=== PATIENT | female | born 1960 | race Caucasian/White ===

== ENCOUNTER → 2019-10-24 09:39 | Outpatient (BNVA) | payer MEDICAID, SELFPAY | PROVIDERS: Family Provider Nurse Practitioner; PCP Nurse Practitioner; Visit Provider Nurse Practitioner | DX: F43.12 Post-traumatic stress disorder, chronic (principal) | CPT/HCPCS: 99213 ==

== ENCOUNTER → 2020-04-14 07:41 | Outpatient (BNVA) | payer MEDICAID, SELFPAY | PROVIDERS: Family Provider Nurse Practitioner; PCP Nurse Practitioner; Visit Provider Nurse Practitioner | DX: F43.12 Post-traumatic stress disorder, chronic (principal) | CPT/HCPCS: 99213 ==

== ENCOUNTER 2020-04-29 12:25 | Outpatient (CLI) | payer MEDICAID, SELFPAY ==
--- NOTE | 2020-04-29 12:33 | XRR_ITS ---
PROCEDURE INFORMATION: Exam: XR Left Wrist Exam date and time: 04/29/2020 12:35 PM Age: 59 years old Clinical indication: Prior surgery; Surgery date: 6+ months; Surgery type: Carpal tunnel; Patient HX: C/O chronic left wrist pain TECHNIQUE: Imaging protocol: XR Left wrist. Views: 3 or more views. COMPARISON: No relevant prior studies available. FINDINGS: Bones/joints: Old distal radial and ulnar styloid fractures and degenerative change. Soft tissues: Unremarkable. XR/XR wrist LT min 3V* [id number] IMPRESSION: Old distal radial and ulnar styloid fractures and degenerative change.
== END 2020-04-29 12:26 | disposition home or self-care (01) ==
PROVIDERS: Family Provider Family Medicine; PCP Family Medicine; Visit Provider Family Medicine
DX: M25.532 Pain in left wrist (principal); G89.29 Other chronic pain; Z87.81 Personal history of (healed) traumatic fracture
CPT/HCPCS: 73110

== ENCOUNTER → 2020-05-29 08:40 | Outpatient (BNVA) | payer MEDICAID, SELFPAY | PROVIDERS: Family Provider Family Medicine; PCP Family Medicine; Visit Provider Family Medicine | DX: E11.9 Type 2 diabetes mellitus without complications (principal); E78.5 Hyperlipidemia, unspecified; M25.532 Pain in left wrist; G89.29 Other chronic pain; F17.219 Nicotine dependence, cigarettes, with unspecified nicotine-induced disorders | CPT/HCPCS: 80053; 80061; 82043; 83036; 85025; 87086 ==

== ENCOUNTER → 2020-07-01 07:34 | Outpatient (BNVA) | payer MEDICAID, SELFPAY | PROVIDERS: Family Provider Family Medicine; PCP Family Medicine; Visit Provider Nurse Practitioner | DX: F43.12 Post-traumatic stress disorder, chronic (principal) | CPT/HCPCS: 99213 ==

== ENCOUNTER → 2020-09-15 11:24 | Outpatient (BNVA) | payer MEDICAID, SELFPAY | PROVIDERS: Family Provider Family Medicine; PCP Family Medicine; Visit Provider Family Medicine | DX: E11.9 Type 2 diabetes mellitus without complications (principal) | CPT/HCPCS: 80053; 83036 ==

== ENCOUNTER → 2020-10-13 07:47 | Outpatient (BNVA) | payer MEDICAID, SELFPAY | PROVIDERS: Family Provider Family Medicine; PCP Family Medicine; Visit Provider Nurse Practitioner | DX: F43.12 Post-traumatic stress disorder, chronic (principal) | CPT/HCPCS: 99213 ==

== ENCOUNTER → 2020-12-25 10:16 | Outpatient (BNVA) | payer MEDICAID, SELFPAY | PROVIDERS: Family Provider Family Medicine; PCP Family Medicine; Visit Provider Family Medicine | DX: E78.5 Hyperlipidemia, unspecified (principal); E11.9 Type 2 diabetes mellitus without complications; F17.219 Nicotine dependence, cigarettes, with unspecified nicotine-induced disorders | CPT/HCPCS: 80053; 80061; 83036 ==

== ENCOUNTER → 2021-01-05 08:02 | Outpatient (BNVA) | payer MEDICAID, SELFPAY | PROVIDERS: Family Provider Family Medicine; PCP Family Medicine; Visit Provider Nurse Practitioner | DX: F43.12 Post-traumatic stress disorder, chronic (principal) | CPT/HCPCS: 99214 ==

== ENCOUNTER → 2021-03-02 08:05 | Outpatient (BNVA) | payer MEDICAID, SELFPAY | PROVIDERS: Family Provider Family Medicine; PCP Family Medicine; Visit Provider Nurse Practitioner | DX: F43.12 Post-traumatic stress disorder, chronic (principal) | CPT/HCPCS: 99214 ==

== ENCOUNTER → 2021-04-27 10:39 | Outpatient (BNVA) | payer MEDICAID, SELFPAY | PROVIDERS: Family Provider Family Medicine; PCP Family Medicine; Visit Provider Family Medicine | DX: E11.9 Type 2 diabetes mellitus without complications (principal); E78.5 Hyperlipidemia, unspecified; F17.219 Nicotine dependence, cigarettes, with unspecified nicotine-induced disorders | CPT/HCPCS: 80053; 82043; 83036 ==

== ENCOUNTER → 2021-05-06 07:06 | Outpatient (BNVA) | payer MEDICAID, SELFPAY | PROVIDERS: Family Provider Family Medicine; PCP Family Medicine; Visit Provider Nurse Practitioner | DX: F43.12 Post-traumatic stress disorder, chronic (principal) | CPT/HCPCS: 99214 ==

== ENCOUNTER → 2021-07-02 09:11 | Outpatient (BNVA) | payer MEDICAID, SELFPAY | PROVIDERS: Family Provider Family Medicine; PCP Family Medicine; Visit Provider Family Medicine | DX: E78.5 Hyperlipidemia, unspecified (principal); Z13.6 Encounter for screening for cardiovascular disorders; Z23 Encounter for immunization; E11.9 Type 2 diabetes mellitus without complications; Z68.20 Body mass index [BMI] 20.0-20.9, adult; F17.219 Nicotine dependence, cigarettes, with unspecified nicotine-induced disorders; Z71.6 Tobacco abuse counseling; Z71.89 Other specified counseling | CPT/HCPCS: 80053; 80061 ==

== ENCOUNTER → 2021-07-29 07:53 | Outpatient (BNVA) | payer MEDICAID, SELFPAY | PROVIDERS: Family Provider Family Medicine; PCP Family Medicine; Visit Provider Nurse Practitioner | DX: F43.12 Post-traumatic stress disorder, chronic (principal) | CPT/HCPCS: 99214 ==

== ENCOUNTER → 2021-10-21 08:26 | Outpatient (BNVA) | payer MEDICAID, SELFPAY | PROVIDERS: Family Provider Family Medicine; PCP Family Medicine; Visit Provider Nurse Practitioner | DX: F43.12 Post-traumatic stress disorder, chronic (principal) | CPT/HCPCS: 99214 ==

== ENCOUNTER 2021-12-07 13:49 | Outpatient (CLI) | payer MEDICAID, SELFPAY ==
--- NOTE | 2021-12-07 13:59 | XRR_ITS ---
PROCEDURE INFORMATION: Exam: XR Right Ribs with PA Chest Exam date and time: 12/07/2021 1:59 PM Age: 61 years old Clinical indication: Injury or trauma; Fall; Rib area, left side; Blunt trauma; Injury date: 3 days ago; Injury details: PT fell on concrete stairs 3 days, pain RT rib area; Additional info: Pain after fall TECHNIQUE: Imaging protocol: XR Right ribs with PA chest. Views: 3 views COMPARISON: No relevant prior studies available. FINDINGS: Lungs: Unremarkable. No consolidation. Pleural spaces: Unremarkable. No pleural effusion. No pneumothorax. Heart/Mediastinum: Unremarkable. No cardiomegaly. Bones/joints: Unremarkable. XR/XR ribs RT mn 3V w CXR1V [id number] IMPRESSION: No acute findings.
== END 2021-12-07 13:50 | disposition home or self-care (01) ==
LOC: RAD 13:54
PROVIDERS: Family Provider Family Medicine; PCP Family Medicine; Visit Provider Nurse Practitioner
DX: R07.81 Pleurodynia (principal); W19.XXXA Unspecified fall, initial encounter
CPT/HCPCS: 71101

== ENCOUNTER → 2021-12-31 08:42 | Outpatient (BNVA) | payer MEDICAID, SELFPAY | PROVIDERS: Family Provider Family Medicine; PCP Family Medicine; Visit Provider Family Medicine | DX: E11.9 Type 2 diabetes mellitus without complications (principal) | CPT/HCPCS: 80053; 83036; 85025 ==

== ENCOUNTER → 2022-06-24 09:10 | Outpatient (BNVA) | payer MEDICAID, SELFPAY | PROVIDERS: Family Provider Family Medicine; PCP Family Medicine; Visit Provider Family Medicine | DX: E11.9 Type 2 diabetes mellitus without complications (principal); Z12.11 Encounter for screening for malignant neoplasm of colon; E78.5 Hyperlipidemia, unspecified; Z12.31 Encounter for screening mammogram for malignant neoplasm of breast; F17.219 Nicotine dependence, cigarettes, with unspecified nicotine-induced disorders | CPT/HCPCS: 80053; 82043; 83036 ==

== ENCOUNTER → 2022-07-13 08:34 | Outpatient (BNVA) | payer MEDICAID, SELFPAY | PROVIDERS: Family Provider Family Medicine; PCP Family Medicine; Visit Provider Surgery | DX: Z86.010 Personal history of colon polyps (principal) | CPT/HCPCS: 99203 ==

== ENCOUNTER → 2022-08-16 08:37 | Outpatient (BNVA) | payer MEDICAID, SELFPAY | PROVIDERS: Family Provider Family Medicine; PCP Family Medicine; Visit Provider Surgery | DX: Z86.010 Personal history of colon polyps (principal) | CPT/HCPCS: 99203 ==

== ENCOUNTER 2022-10-05 08:39 | Outpatient (CLI) | payer MEDICAID, SELFPAY ==
--- NOTE | 2022-10-05 08:51 | MM_ITS ---
WS: [id number] Bilateral screening 3D tomosynthesis digital mammogram, 10/05/2022 Clinical Data: screening mammogram Comparison: None. Findings: The breast parenchymal pattern shows fibroglandular tissue. No spiculated masses or clustered calcifi cations are seen. There are no secondary signs of carcinoma. MM/[place] [id number] Impression: 1. Negative bilateral mammogram unchanged. 2. Recommend annual screening mammograms. BIRADS: 1-Negative FOLLOW UP: 1 Year Follow-up The CAD billet checker was used.
== END 2022-10-05 08:40 | disposition home or self-care (01) ==
LOC: RAD 08:41
PROVIDERS: Family Provider Family Medicine; PCP Family Medicine; Visit Provider Family Medicine
DX: Z12.31 Encounter for screening mammogram for malignant neoplasm of breast (principal)
CPT/HCPCS: 77063; 77067

== ENCOUNTER 2023-01-11 08:21 | Outpatient (CLI) | payer MEDICAID, SELFPAY ==
--- NOTE | 2023-01-11 07:45 | CT_ITS ---
WS: [id number] LDCT LUNG CANCER SCREENING HISTORY: screening TECHNIQUE: Axial imaging performed from the apices to 1 cm below the costophrenic angles. Coronal and sagittal reformats are submitted with axial MIP series. All CT scans at [facility] use at least one of these dose optimization techniques: automated exposure control; mA and/or kV adjustment per patient size (includes targeted exams where dose is matched to clinical indication); or iterativ e reconstruction. DLP: 69.61 mGy.cm DIvol: Mean CTDIvol: 1.60 (mGy) COMPARISON: None available. Diagnostic quality: Satisfactory Lungs: Chronic emphysema. Large spiculated mass RIGHT upper lobe measures 2.9 x 3.5 cm. Numerous spic ulations with small satellite nodules. There is tethering and extension towards the pleura. There are additional bilateral numerous scattered subcentimeter pulmonary nodules. Some of these additional no dules contain central cavitations. These additional nodules are bilateral and in all lobes. Heart: Normal size heart with no pericardial effusion.. No pericardial effusion. Other findings: Mild atherosclerosis aorta. Normal size pulmonary artery. No adenopathy identified wi thin the mediastinum or hilum. No adrenal mass. Nonobstructing upper pole RIGHT renal calcification. CT/CT lung screening [id number] IMPRESSION: LUNG-RADS: 4X-Suspicious FOLLOW UP: PET/CT recommended OTHER FINDINGS (S MODIFIER): None. Highly suspicious mass or malignancy RIGHT upper lobe with additional pulmonary nodules suspicious for metastatic disease.
== END 2023-01-11 08:22 | disposition home or self-care (01) ==
LOC: RAD 08:23
PROVIDERS: PCP Family Medicine; Visit Provider Family Medicine
DX: J43.9 Emphysema, unspecified (principal); R91.8 Other nonspecific abnormal finding of lung field; F17.200 Nicotine dependence, unspecified, uncomplicated
CPT/HCPCS: 71271; 80053; 80061; 83036; 85025

== ENCOUNTER 2023-01-28 07:17 | Outpatient (CLI) | payer MEDICAID, SELFPAY ==
--- NOTE | 2023-01-28 09:30 | PETR_ITS ---
PROCEDURE INFORMATION: Exam: PET/CT Skull Base to Mid-thigh Exam date and time: 01/28/2023 9:57 AM Age: 62 years old Clinical indication: Abnormal findings lung field; Additional info: R lung mass LABS AND CLINICAL REPORTS: Glucose: 150 mg/dl Treatment strategy for malignancy (PET staging): Initial Staging (PI) TECHNIQUE: Imaging protocol: Following at least four-hour fasting and following the injection of radiopharmaceutical, low dose CT images were obtained. Then, PET images were obtained. Attenuation corrected images were constructed using the CT scan. Fused images of PET and CT were reviewed. The standardized uptake values (SUV) reported below are maximum values within a region of interest, expressed in gm/ml. Exam includes orbital meatal line to mid-thigh. Radiopharmaceutical: 14.44 mCi F-18 FDG (Fluorodeoxyglucose), IV. Time of imaging post radiopharmaceutical administration: 60.5 minutes. Injection site: Right antecubital vein. COMPARISON: 1. CT lung screening 76079 01/11/2023. 2. CR XR ribs RT mn 3V w CXR1V 55079 12/07/2021. FINDINGS: Brain: Visualized brain has normal physiologic uptake. Pharynx: No abnormal uptake. Larynx: No abnormal uptake. Lungs, pleura and trachea: In the right upper lobe, at the posterolateral aspect of the apical segment, a malignant spiculated mass, 2.3 x 1.9 x 2.0 cm, has an SUV max of 5.1 (image 38). On the recent comparison CT chest, there were approximally 30 small spiculated nodules scattered throughout all lobes of both lungs. They are consistent with metastases. Several had central cavitation. The largest pulmonary nodule, in the anterior segment of the right upper lobe, is 6 mm (image 53). Its SUV max is 1.3. The rest of the nodules are too small to be detectable on PET. Heart: Normal physiologic uptake. Mediastinal space: No abnormal uptake. Liver: No abnormal uptake. Gallbladder and bile ducts: No abnormal uptake. Pancreas: No abnormal uptake. Spleen: No abnormal uptake. Adrenal glands: No abnormal uptake. Kidneys and ureters: Normal physiologic uptake. Stomach and bowel: No abnormal uptake. The stomach and duodenum are unremarkable. The small bowel is normal in caliber without wall thickening. The colon is unremarkable. There is no acute colonic distention, diverticulosis or inflammation. Reproductive: Postmenopausal uterine and ovarian atrophy is appropriate for 62 years of age. Vasculature: There is moderate calcific atherosclerosis of the abdominal aorta and iliac arteries. There is no aneurysm. Lymph nodes: No FDG avid lymphadenopathy. Bones/joints: No abnormal uptake. Mild/moderate spinal degenerative changes. No FDG avid lytic or blastic skeletal lesions. Soft tissues: No metabolically active areas. PET/PET skulltothigh INITIAL [id number] IMPRESSION: 1. In the right upper lobe, at the apical segment, a malignant spiculated mass, 2.3 x 1.9 x 2.0 cm, has an SUV max of 5.1 (image 38). Biopsy is recommended. 2. On the recent comparison CT chest, there were approximally 30 small spiculated nodules scattered throughout all lobes of both lungs. They are consistent with metastases. Several had central cavitation. The largest pulmonary nodule, in the anterior segment of the right upper lobe, is 6 mm (image 53). Its SUV max is 1.3. The rest of the nodules are too small to be detectable on PET. 3. No FDG avid lymphadenopathy. 4. No FDG avid distant metastases.
== END 2023-01-30 06:06 | disposition home or self-care (01) ==
PROVIDERS: PCP Family Medicine; Visit Provider Internal Medicine Pulmonary Disease
DX: R91.8 Other nonspecific abnormal finding of lung field (principal)
CPT/HCPCS: 78815; 99204; A9552

== ENCOUNTER 2023-01-31 05:28 | Day surgery (SDC) | payer MEDICAID, SELFPAY ==
[2023-01-30 10:20] VITALS: BMI 20.2
[2023-01-31] VITALS (20 sets, daily range): BP systolic 53–118; BP diastolic 34–62; PULSE 55–92; RESP 16–20; TEMP 36.1–36.8; O2SAT 89–98
--- NOTE | 2023-01-31 05:49 | CT_ITS ---
WS: [id number] CT chest ION (PULM ONLY) 12883 HISTORY: for ION bronchoscopy biopsies TECHNIQUE: Axial imaging performed through the thorax. [facility] CT [facility] use at least one of these dose optimization techniques: automated exposure control; mA and/or kV adjustment per p atient size (includes targeted exams where dose is matched to clinical indication); or iterative cristin nstruction. CONTRAST: Omnipaque 350; 100 mL IV. DLP: 192.84 mGy-cm. COMPARISON: 01/11/2023 Imaging obtained for guidance during bronchoscopy. Spiculated mass in the RIGHT upper lobe was recent ly identified along with metastatic nodules suspected bilaterally. Marked pulmonary hyperexpansion. C hronic emphysema. No pneumothorax. No pleural effusion. CT/CT chest ION (PULM ONLY) 14775 IMPRESSION: CT imaging provided for guidance during bronchoscopy. Highly suspicious for louis plasm RIGHT upper lobe and multi lobar metastatic nodules.
[2023-01-31 06:34] LABS: Glucose Point of Care 164 mg/dL (70-110)
[2023-01-31] MEDS: sodium chloride 0.9% 1,000 ML 30 ML IV (06:34)
--- NOTE | 2023-01-31 06:51 | W.PM.OPSUD ---
Surgery/Procedure H&P Update DATE OF PROCEDURE: January 31, 2023 DATE H&P PERFORMED: 01/17/23 H&P UPDATE INFORMATION: I have reviewed H&P completed within last 30 days CHANGES TO PREVIOUS DOCUMENTATION: Patient underwent PET/CT scan on 01/28/2023 which showed spiculated right upper lobe apical segment nodule 2.3 x 1.9 x 2.0 cm with SUV 5.1. When compared to recent CT chest there were approximately 30 small spiculated nodules scattered throughout all lobes of both lungs. Several had central cavitation. Largest pulmonary nodule in anterior segment of right upper lobe 6 mm. Its SUV is 1.3 the rest of the nodules are too small to be detectable on PET. No FDG avid lymphadenopathy. No FDG avid distant metastasis Otherwise no change PREOP DIAGNOSIS: Suspected malignancy PRIMARY INDICATION FOR PROCEDURE: PET active right upper lobe spiculated 2.3 cm nodule-performing biopsies to rule out malignancy PLANNED PROCEDURE: Operation Date: 01/31/23 07:00 Proposed Procedures p ION robotic bronch with EBUS; 13349, 39755, 47578, 96202, 94268, 68785, 23737, 69925, 13973, 69363, 14253, 80176, 43912,R91.8,R68.89(Not Applicable) - Phu Arndt MD s Ebus(Not Applicable) - Phu Arndt MD
--- NOTE | 2023-01-31 07:28 | SC_ITS ---
WS: [id number] Exam: C-arm FL for Bronchoscopy Date/Time of Exam: 01/31/2023 7:28 AM Reason For Exam: right upper lobes mass A single anterior posterior C-arm image of the upper right chest is obtained for intraoperative purpo ses. A partially visualized ET tube is noted.
[2023-01-31] MEDS: lidocaine 1% INJ 10 mL (per mL) XX (08:31)
--- NOTE | 2023-01-31 08:32 | P.OP_ITS ---
Operative Report Date of procedure: January 31, 2023 Pre-op diagnosis: Preop Diagnosis Suspected malignancy Procedure done: 64848? ? Dx Bronchoscope w/Washings or airway inspection 04531? ? Dx Bronchoscope w/BAL 26113? ? Bronch with computer image guided Navigational Bronchoscopy 17836? ? Bronchoscopy w/Transbronchial lung biopsy(s), single lobe 89750? ? Bronchoscopy w/Transbronchial needle aspiration biopsy(s), tracheal, main stem, and/or lobar bronchus 38588? ? Bronchoscopy w/ therapeutic aspiration of the tracheobronchial tree (clearance of airway secretions, removal of mucus plugs) 35466? ? EBUS Diag or Interven Peripheral lesion (radial EBUS) Surgeon: Phu Arndt MD [facility] Brief History: Ms. Fabian Read is a 62-year-old female with history of chronic emphysema, chronic smoker, cannabis user, dyslipidemia, type 2 diabetes, PTSD referred by primary care physician ?Current smoker 10-12 per day now and 1 PPD x 45 years, no alcohol, she smoke marijuana - 3-4 balls a day and says she likes to drink it. Patient recently underwent low-dose CT on 01/11/2023 which showed 2.9 x 3.5 cm right upper lobe mass.? There were numerous spiculations with small satellite nodules.? There is tethering and extension towards the pleura.? There were some additional nodules containing central cavitations.? There is additional nodules are bilateral and in all lobes. Patient underwent PET/CT scan on 01/28/2023 which showed spiculated right upper lobe apical segment nodule 2.3 x 1.9 x 2.0 cm with SUV 5.1.? When compared to recent CT chest there were approximately 30 small spiculated nodules scattered throughout all lobes of both lungs.? Several had central cavitation.? Largest pulmonary nodule in anterior segment of right upper lobe 6 mm.? Its SUV is 1.3 the rest of the nodules are too small to be detectable on PET.? No FDG avid lymphadenopathy.? No FDG avid distant metastasis Today scheduled for robotic navigational assisted bronchoscopic biopsies of right upper lobe lesion and endobronchial ultrasound surveillance of mediastinal/hilar lymph nodes. Procedure: 16688? ? Dx Bronchoscope w/Washings or airway inspection 83880? ? Dx Bronchoscope w/BAL 19110? ? Bronch with computer image guided Navigational Bronchoscopy 78880? ? Bronchoscopy w/Transbronchial lung biopsy(s), single lobe 18392? ? Bronchoscopy w/Transbronchial needle aspiration biopsy(s), tracheal, main stem, and/or lobar bronchus 95876? ? Bronchoscopy w/ therapeutic aspiration of the tracheobronchial tree (clearance of airway secretions, removal of mucus plugs) 42968? ? EBUS Diag or Interven Peripheral lesion (radial EBUS) Description of the procedure: The procedure was explained to the patient and the consent was obtained.? The patient was brought to the OR.? Anesthesia: The patient underwent endotracheal intubation for general anesthesia. Local anesthesia: The distal trachea-Maurisio, right and left mainstem bronchi were anesthetized with 1% lidocaine, 3 mL. Following induction of general anesthesia, the flexible bronchoscope was advanced through the? ET tube.? The? lower trachea mucosa appeared normal, no endotracheal lesion was seen.? The maurisio was sharp.? There were some mucus globs in the trachea which were suctioned right away.The maurisio, the right and left mainstem bronchi are anesthetized with 1% lidocaine.? There were some in a systematic manner bilateral bronchial tree was then examined. ? The bronchoscope was advanced into the left mainstem bronchus.? The mucosa appeared normal with no endobronchial lesions.? The left upper lobe, lingula and left lower lobe bronchi were examined up to the third subsegmental level and no abnormalities were identified.? Mucosa appeared normal with no endobronchial lesion, active bleeding or mucous plug.??There were some mucus secretions in lower lobe-which were suctioned right away.(53093) ?The bronchoscope was then introduced into the right mainstem bronchus.? The right upper lobe, right middle lobe and right lower lobe bronchi were examined up to the third subsegmental level and no abnormalities were identified.There were some mucus secretions in all subsegments-which were suctioned right away.(51605) After initial inspection as well as?airway clearance with flexible bronchoscope(07273),?ION robotic assisted navigational bronchoscope (21254)?was introduced-and?right?upper lobe lesion was accessed.? After?confirming the location with radial EBUS (85510),?under the fluoroscopy guidance? -we were able to obtain biopsies from right upper lobe lesion using fine-needle, forceps.? 1 pass each with forceps and fine-needle were used for touch prep and sent for rapid onsite evaluation-pathology reported seeing suspicious cells for malignancy on both fine-needle and forceps slides.? Targeting the same area, 3 additional passes were made with fine-needle and 3 passes were made with forceps and all the samples were placed in formalin for histopathology examination. Bronchoscope was wedged at the entrance of the posterior segment of right upper lobe, 15 mL of saline was instilled and returned 10 mL of bronchoalveolar lavage (58631).? The fluid was mixed with blood and specks of tissue. There was some evidence of grade 2 bleeding-cold saline was instilled and after making sure there is no active bleeding, ION robotic assisted navigational bronchoscope was retracted and?introduced Endobronchial ultrasound EBUS(57425). ? With the help of EBUS, did not identify any hilar/mediastinal lymph nodes. ?After making sure there is no active bleeding EBUS was retracted and procedure terminated. ? Samples: Right upper lobe lesion 1.? Total of 4 passes were made?using needle aspiration(62250);?first pass used for touch prep - reported positive for malignancy; remaining 3 passes were placed in formalin for histopathology 2.? Targeting the same area 4 passes were?made using forceps (36247); first pass used for touch prep -pathology reported seeing positive cells for malignancy; remaining 3 passes were placed in formalin for histopathology 3.?Bronchoscope was wedged at the entrance of the posterior segment of right upper lobe, 15 mL of saline was instilled and returned 10 mL of bronchoalveolar lavage (19981).? The fluid was mixed with blood and specks of tissue.samples for cell count, cytology. Complications: None.The patient was extubated and brought to the PACU in stable condition. Postprocedure chest x-ray: No pneumothorax Disposition: Patient can be discharged home in stable condition. ? Pt, is aware that I am going to call them? to update final biopsy results once available.
--- NOTE | 2023-01-31 08:57 | XR_ITS ---
WS: [id number] Exam: XR chest 1V portable 54529 Date/Time of Exam: 01/31/2023 8:57 AM Reason For Exam: Post ION Comparison 12/07/2021. There is a focal parenchymal density in the right upper lobe that may represent consolidating pneumon ia or mass. There are also several ill-defined scattered nodular densities in both lungs which appear to represent a change since the last study. There is coarsening of interstitial markings throughout both lungs. Heart size is normal. The mediastinum is normal in contour. No pleural effusions. Regiona l bony elements are intact. Monitoring leads superimpose the chest. Recommendations: Contrast CT scanning of the chest would be recommended for further workup. XR/XR chest 1V portable 14592 IMPRESSION: 1. Ill-defined focal density in the right upper lobe which may represent focal pneumonia or mass. 2. Scattered ill-defined nodular densities in both lungs which represents a gorge nge since the prior study. Coarsening of interstitial markings throughout both lungs also not present on the prior exam.
--- NOTE | 2023-01-31 09:10 | SUR.PHASEI ---
ANESTHESIA AWARE OF LOW B/P. ALBUMIN GIVEN BY DR. GALAN. 50 ML OF ALBUMIN IVPB.
[2023-01-31 09:54] LABS: Apprearance, Bronch Wash Bloody (CLEAR); Color, Bronc Wash Red
[2023-01-31 10:01] LABS: Bronch Source Right Upper Lobe; Cyto Order Verification Order Verified
[2023-01-31] MEDS: calcium chloride 10% Syr 10 mL 1 GM IVP (10:21)
[2023-01-31 11:39] LABS: PATH Referral Yes; Total Cells Counted Bronch 200
--- NOTE | 2023-01-31 14:23 | ANE.PACU2 ---
Inpatient post-anesthesia follow up: Airway intact: Yes Vital signs: Temperature 97.0 F Pulse Rate 56 Respiratory Rate 18 Blood Pressure 118/62 Pulse Oximetry 91 Oxygen Delivery Me thod Nasal Cannula Oxygen Flow Rate 2 Fraction of Inspir ed Oxygen Hydration adequate: Yes Nausea and vomiting: No Pain level: 2 Mental status: Baseline Additional Comments: Had blood pressure issues taking it out of left arm, in future take BP's from right.
--- NOTE | 2023-01-31 14:24 | ANES.PREANE2 ---
Pre-Anesthetic Assessment Height/Weight: Height 1.55 m Weight 48.534 kg Temp Pulse Resp BP Pulse Ox O2 Del Method O2 Flow Rate 97.0 F L 56 L 18 118/62 91 Nasal Cannula 2 01/31/23 08:41 01/31/23 10:54 01/31/23 10:54 01/31/23 10:57 01/31/23 10:54 01/31/23 10:54 01/31/23 10:54 Preop Diagnosis: Suspected malignancy Operation Date: 01/31/23 07:00 Proposed Procedures p ION robotic bronch with EBUS; 32744, 63509, 39347, 58327, 88064, 37980, 24103, 52053, 08980, 37989, 57585, 17609, 17380,R91.8,R68.89(Not Applicable) - Phu Arndt MD s Ebus(Not Applicable) - Phu Arndt MD Familial anesthetic complications: none Was Beta Lesa taken within 24 hours: N/A Was Clonidine taken within 24 hours: N/A Last intake: Intake Last Liquid Date 01/30/23 Last Liquid Time 17:00 Last Solid Date 01/30/23 Last Solid Time 17:00 Social Tobacco and No alcohol Exam alert, oriented x 3 and regular rate & rhythm Airway Submandibular: within normal limits Cervical ROM: within normal limits Mallampati: Class II Pulmonary Chronic Obstructive Pulmonary Disease Lung mass Metabolic Diabetes Mellitus and Hyperlipidemia [facility] [place] Osteoarthritis/DJD Neuropsych Anxiety and Depression Anesthetic Plan ASA status: 3 Anesthesia: General Medications/Allergies Home Medications Medication Instructions Recorded Confirmed Last Taken Type blood-glucose meter (FreeStyle #100 ea 05/22/20 01/30/23 01/30/23 Rx [place] kit) blood sugar diagnostic (OneTouch #100 ea 07/13/20 01/30/23 01/30/23 Rx Verio test strips) blood-glucose meter (OneTouch #1 ea 07/15/20 01/30/23 01/30/23 Rx Verio Meter) glimepiride 1 mg tablet 1 mg PO QAM #60 tabs 12/23/22 01/30/23 01/30/23 Rx olanzapine 20 mg tablet 20 mg PO .at bed #30 tabs 01/02/23 01/30/23 01/30/23 Rx sertraline 100 mg tablet (Zoloft) 100 mg PO DAILY #30 tabs 01/02/23 01/30/23 01/30/23 Rx trazodone 100 mg tablet 100 mg PO .at bed #30 tabs 01/02/23 01/30/23 01/30/23 Rx albuterol sulfate 90 mcg/actuation 2 puff inhalation Q6H PRN 01/17/23 01/30/23 01/31/23 Rx aerosol inhaler shortness of breath or wheezing #8.5 grams tiotropium bromide 18 mcg capsule 1 cap inhalation DAILY #60 01/17/23 01/30/23 01/31/23 Rx with inhalation device (Spiriva inhalations with HandiHaler) atorvastatin 20 mg tablet 20 mg PO DAILY 01/30/23 01/30/23 01/30/23 History amoxicillin 500 mg-potassium 1 tab PO BID #14 tabs 01/31/23 Unknown Rx clavulanate 125 mg tablet (Augmentin) Allergies Allergy/AdvReac Type Severity Reaction Status Date / Time egg yolk Allergy Intermediate emesis Verified 01/31/23 06:27 aloe vera Allergy ALGY-Bliste Verified 01/31/23 06:27 r metformin Allergy Unknown Verified 01/31/23 06:27 Sulfa (Sulfonamide Allergy Unknown Verified 01/31/23 06:27 Antibiotics) naproxen AdvReac Mild chest Verified 01/31/23 06:27 pain, constipation and tongue goes numb sitagliptin [From Januvia] AdvReac Mild tongue Verified 01/31/23 06:27 swelling PFSH Anesthesia Medical History Cannabis use disorder Dyslipidemia History of colon polyps Nicotine use disorder Post-traumatic stress disorder, chronic Psychiatric care Schizophrenia Type 2 diabetes mellitus, without long-term current use of insulin Surgical History H/O carpal tunnel repair H/O tubal ligation History of colonoscopy Family History Other CAD (coronary artery disease) Diabetes Social History Smoking and tobacco status: current every day smoker cigarettes Packs smoked per day: 0.5 Smoking risk assessment/counseling performed?: Yes Tobacco counseling given: counseling >3 minutes Alcohol intake: never Substance/Drug Use: current Substance/Drug use frequency: daily Data Anesthesia Cardiac Studies: No Data to Display
[2023-02-03 14:42] LABS: PD-L1 (Clone 22C3) by IHC BBPL See Report
== END 2023-01-31 11:30 | disposition home or self-care (01) ==
PROVIDERS: PCP Family Medicine; Visit Provider Internal Medicine Pulmonary Disease
PROC: 0BJ08ZZ Inspection of Tracheobronchial Tree, Via Natural or Artificial Opening Endoscopic (ICD-10-PCS; CPT 31622; principal; 2023-01-31 07:00)
PROC: BB4BZZZ Ultrasonography of Pleura (ICD-10-PCS; 2023-01-31 07:00)
DX: C34.11 Malignant neoplasm of upper lobe, right bronchus or lung (principal); J43.9 Emphysema, unspecified; E11.9 Type 2 diabetes mellitus without complications; E78.5 Hyperlipidemia, unspecified; F17.210 Nicotine dependence, cigarettes, uncomplicated; F12.929 Cannabis use, unspecified with intoxication, unspecified; Z79.84 Long term (current) use of oral hypoglycemic drugs; Z79.899 Other long term (current) drug therapy; Z88.2 Allergy status to sulfonamides
CPT/HCPCS: 31624; 31627; 31628; 31629; 31645; 31654; 36416; 71045; 71250; 76000; 80503; 82962; 87070; 87205; 88112; 88305; 88341; 88342; 89050; J1100; J2405; J2704; J3010; J3490; J7030; P9047

== ENCOUNTER 2023-02-03 10:10 | Oncology outpatient (recurring) (ONCR) | payer MEDICAID, SELFPAY | END 2023-02-05 23:59 | disposition home or self-care (01) | PROVIDERS: PCP Family Medicine; Visit Provider Internal Medicine Medical Oncology | DX: C34.11 Malignant neoplasm of upper lobe, right bronchus or lung (principal); C78.02 Secondary malignant neoplasm of left lung; F17.210 Nicotine dependence, cigarettes, uncomplicated | CPT/HCPCS: 36415; 99205 ==

== ENCOUNTER 2023-02-08 07:49 | Outpatient (CLI) | payer MEDICAID, SELFPAY ==
[2023-02-08 08:00] VITALS: BP 145/65; BP 148/67
[2023-02-08 08:14] VITALS: PULSE 72; RESP 18; O2SAT 96
[2023-02-08 08:19] VITALS: PULSE 75
== END 2023-02-08 07:50 | disposition home or self-care (01) ==
LOC: RT 07:50
PROVIDERS: PCP Family Medicine; Visit Provider Internal Medicine Pulmonary Disease
DX: R91.8 Other nonspecific abnormal finding of lung field (principal); F17.219 Nicotine dependence, cigarettes, with unspecified nicotine-induced disorders
CPT/HCPCS: 94060; 94618; 94726; 94729; J7613

== ENCOUNTER → 2023-09-18 08:41 | Outpatient (BNVA) | payer MEDICAID, SELFPAY | PROVIDERS: PCP Family Medicine; Visit Provider Family Medicine | DX: E11.9 Type 2 diabetes mellitus without complications (principal); E78.5 Hyperlipidemia, unspecified; C34.11 Malignant neoplasm of upper lobe, right bronchus or lung; M54.42 Lumbago with sciatica, left side; M54.41 Lumbago with sciatica, right side; G89.29 Other chronic pain; F20.5 Residual schizophrenia | CPT/HCPCS: 80053; 80061; 83036; 85025 ==

== ENCOUNTER → 2024-03-11 09:00 | Outpatient (BNVA) | payer MEDICAID, SELFPAY | PROVIDERS: PCP Family Medicine; Visit Provider Family Medicine | DX: E11.9 Type 2 diabetes mellitus without complications; Z13.6 Encounter for screening for cardiovascular disorders | CPT/HCPCS: 80053; 83036 ==

== ENCOUNTER 2024-04-29 12:45 | Inpatient (IN) | payer SELFPAY ==
[2024-04-29 12:48] VITALS: BP 129/61; PULSE 69; TEMP 36.6; O2SAT 93; BMI 19.6
--- NOTE | 2024-04-29 13:02 | XRR_ITS ---
PROCEDURE INFORMATION: Exam: XR Left Knee Exam date and time: 04/29/2024 1:10 PM Age: 63 years old Clinical indication: Injury or trauma; Fall; Blunt trauma; Knee; Left TECHNIQUE: Imaging protocol: Radiologic exam of the left knee. Views: 3 views. COMPARISON: No relevant prior studies available. FINDINGS: Limitations: Lateral view is oblique and difficult to evaluate. Bones/joints: A moderate suprapatellar joint effusion is present. Very subtle linear lucency with cortical discontinuity at the left intercondylar eminence. Subtle cortical disruption in the left tibial plateau. No other acutely displaced skeletal fractures are identified. There is no evidence of joint dislocation. No aggressive osseous lesions. Soft tissues: Anterior knee swelling. XR/XR knee LT 3V* 35636 IMPRESSION: 1. Very high concern for subtle/minimally displaced fractures at the left intercondylar eminence and left tibial plateau. Correlation with noncontrast CT of the knee recommended. 2. Moderate suprapatellar effusion. 3. Anterior knee swelling.
--- NOTE | 2024-04-29 13:36 | ED_ITS ---
HPI - Extremity Injury (Lower) General: Chief Complaint: Extremity Injury, Lower Stated Complaint: left swelling and pain Time Seen by Provider: 04/29/24 13:05 Source: patient and EMS Mode of arrival: EMS Limitations: no limitations History of Present Illness: Patient is a 63-year-old female who presents to the ED today for evaluation of left knee injury that she sustained just prior to arrival. Patient states she was outside feeding her animals when she somehow tripped over the water bucket. She states she did not fall but she felt like her patella dislocated laterally popped back in . She states she was immediately not able to bear weight on the knee and had to crawl back to her home to contact EMS. No other injuries or complaints at this time. PMH significant for diabetes, non-small cell lung cancer with metastasis that patient has opted not to treat, emphysema, chronic smoking, chronic lower back pain, HLD. Patient states she is recently lost her insurance due to some mistake regarding a reversal mortgage. complaint: knee injury Onset (ago): hour(s) Injury: Left: knee Place: home Severity: severe Severity scale (1-10): >10 Relieving factors: immobilization Exacerbating factors: weight bearing, movement and palpation Context: direct blow Associated symptoms: Reports inability to bear weight Other symptoms: none Review of Systems Musc: Reports: joint pain (L knee) and limited range of motion (L knee); Denies: extremity pain, extremity swelling or joint swelling Neuro: Reports: difficulty walking (secondary to L knee pain); Denies: numbness in extremities, weakness in extremities or sensory changes PFS ED PFSH: Medical History Non-small cell lung cancer Nicotine use disorder Cannabis use disorder History of colon polyps Psychiatric care Type 2 diabetes mellitus, without long-term current use of insulin Dyslipidemia Schizophrenia Post-traumatic stress disorder, chronic Surgical History History of colonoscopy H/O tubal ligation H/O carpal tunnel repair Family History Other CAD (coronary artery disease) Diabetes Social History Smoking and tobacco/nicotine status: current every day tobacco/nicotine user cigarettes Packs smoked per day: 0.5 Alcohol intake: never Substance/Drug Use: current Substance/Drug use frequency: daily Physical Exam Const: COMMON NORMALS: no acute distress, patient oriented x3, no limitations, alert and well nourished GENERAL APPEARANCE: cooperative and appears older than stated age ORIENTATION/CONSCIOUSNESS: Yes awake, Yes oriented to person, Yes oriented to place and Yes oriented to time Extremity: COMMON NORMALS: capillary refill normal, no clubbing, cyanosis or edema, no calf tenderness and no pedal edema GENERAL: Yes normal exam except as noted LEFT LOWER EXTREMITY: Yes knee joint (significant tenderness even with minimal palpation) Left knee: Yes inspection (normal gross inspection), Yes ROM (limited secondary to pain) and Yes neurovascular exam (normal) Neuro: COMMON NORMALS: patient oriented x3, moves all extremities, no focal motor deficits and no sensory deficits noted SENSORIUM/ORIENTATION: Yes alert, Yes oriented to person, Yes oriented to place and Yes oriented to time GAIT: Yes Unable to assess gait Skin: TRAUMA: no lacerations or abrasions Course Vital Signs: Vital signs: Vital Signs Temperature 97.9 F 04/29/24 12:48 Pulse Rate 69 04/29/24 12:48 Respiratory Rate 17 04/29/24 14:31 Blood Pressure 129/61 04/29/24 12:48 Pulse Oximetry 96 04/29/24 14:31 Oxygen Delivery Me thod Room Air 04/29/24 12:48 MDM - Extremity Injury (Lower) Medical Decision Making Patient states she cannot care for herself at home. We attempted crutches unsuccessfully. Her home is not wheelchair accessible. At this point I do not have a choice other than to admit her. She has absolutely no friends or family to care for her. She was getting some type of [employer] services up until last month but no longer receives those. She has recently lost her Medicaid due to some mistake regarding a reversal mortgage. Medical Records I reviewed the patient's medical records. Lab Data Radiology Impressions Knee X-Ray 04/29/24 13:02 IMPRESSION: 1. Very high concern for subtle/minimally displaced fractures at the left intercondylar eminence and left tibial plateau. Correlation with noncontrast CT of the knee recommended. 2. Moderate suprapatellar effusion. 3. Anterior knee swelling. Knee CT 04/29/24 14:07 IMPRESSION: 1. Mildly comminuted lateral tibial plateau fracture, depressed 7.5 mm. 2. Fracture extends at least 4 cm into the tibial metaphysis. All radiology interpretation(s) finalized by discharge Discharge Plan Discharge Condition: Stable Prescriptions: No Action albuterol sulfate 90 mcg/actuation HFA aerosol inhaler 2 puff inhalation Q6H PRN (Reason: shortness of breath or wheezing) Qty: 8.5 6RF tramadol 50 mg tablet 50 mg PO BID PRN (Reason: pain) Qty: 60 2RF fluticasone propionate [Flonase Allergy Relief] 50 mcg/actuation spray,suspension 2 spray intranasal DAILY Qty: 16 0RF Rx Instructions: administer into each nostril (DME) blood-glucose meter [[employer] [place]] Kit See Rx Instructions .ROUTE .MEDSUPPLY Qty: 100 0RF Rx Instructions: strips - test once daily (DME) OneTouch Verio test strips Strip See Rx Instructions .ROUTE .MEDSUPPLY Qty: 100 0RF Rx Instructions: ONCE DAILY (DME) blood-glucose meter [OneTouch Verio Meter] Misc See Rx Instructions .ROUTE .MEDSUPPLY Qty: 1 0RF Rx Instructions: once daily sertraline [Zoloft] 100 mg tablet 100 mg PO DAILY Qty: 30 3RF glipizide 2.5 mg tablet extended release 24hr 2.5 mg PO DAILY Qty: 30 0RF Spiriva with HandiHaler 18 mcg capsule, w/inhalation device 1 cap inhalation DAILY Qty: 60 0RF Rx Instructions: puncture 1 cap using device; one dose = 2 inhalations atorvastatin 20 mg tablet 20 mg PO DAILY Qty: 90 1RF trazodone 100 mg tablet 100 mg PO BEDTIME gabapentin 300 mg capsule 300 mg PO TID olanzapine 20 mg tablet 20 mg PO BEDTIME Referrals: So Copeland DO [Primary Care Provider] - Coding Level of Care Code ED Riffler Tender for Bijal Pantoja
--- NOTE | 2024-04-29 14:07 | CT_ITS ---
WS: [id number] CT LEFT KNEE, NONCONTRAST HISTORY: trauma; abnormal XR findings Technique: All CT scans at [facility] use at least one of these dose optimization techniques: automated exposure control; mA and/or kV adjustment per patient size (includes targeted exams where dose is matched to clinical indication); or iterative reconstruction. DLP: 302.07 mGy.cm COMPARISON: Radiograph 04/29/2024 Acute 7.5 mm depressed fracture involving the lateral tibial plateau. There are several bony fragment s with the tibial plateau being depressed. Fracture extends approximately 4.0 cm into the tibial meta physis. Fracture involves the anterior to posterior tibial plateau. The medial plateau and femoral co ndyles are intact. Proximal fibula is normal. There is a large suprapatellar hemarthrosis. CT/CT knee LT wo con* [id number] IMPRESSION: 1. Mildly comminuted lateral tibial plateau fracture, depressed 7.5 mm. 2. Fracture extends at least 4 cm into the tibial metaphysis.
[2024-04-29 14:31] VITALS: RESP 17; O2SAT 96
[2024-04-29] MEDS: morphine 4 mg/mL SDV 1 mL IM (14:31)
[2024-04-29] MEDS: ketorolac 30 mg/mL INJ IM (14:31)
--- NOTE | 2024-04-29 14:42 | PC.PHAR ---
PT STATES SHE SHOULD BE TAKING ALL THESE MEDICATIONS BUT LOST HER MEDICAID INSURANCE LAST MONTH AND IS TAKING WHAT MEDICATIONS SHE HAS LEFT. SHE IS OUT OF SOME OF THESE MEDICATIONS.
--- NOTE | 2024-04-29 15:00 | XR_ITS ---
WS: [id number] PORTABLE CHEST HISTORY: admission COMPARISON: 01/31/2023 Increasing consolidation in the RIGHT upper lobe. This is at the site of a previously described PET/C T positive neoplasm. This may be a treated neoplasm. No interval evaluation since 01/31/2023. LEFT lung is clear. No pleural effusion or pneumothorax. Cardiac size: Normal. Mediastinum/Aorta: Normal mediastinum. No osseous abnormality seen. XR/XR chest 1V portable [id number] IMPRESSION: Increased consolidation at the RIGHT apex consistent with the known neoplasm. N o interval imaging since 01/31/2023 to evaluate for progression or improvement.
--- NOTE | 2024-04-29 15:01 | ECG_ITS ---
[facility] Test Date: 2024-04-29 Pat Name: Amina Read Department: Room: Gender: Female Workday Financials Consultant: : 1960 Requested By: Flor Antoine Order Number: [id number] Jada MD: Drake Almonte M.D. Measurements Intervals [place] Rate: 54 P: 66 SD: 131 QRS: 74 QRSD: 83 T: 71 QT: 432 QTc: 412 Interpretive Statements SINUS BRADYCARDIA No previous ECG available for comparison Electronically Signed On 04-30-2024 8:31:59 CDT by Drake Almonte M.D. [email or web address].[facility].[employer]/store/[id number]
[2024-04-29 15:14] LABS: Basophils # 0.1 10^3/uL (0.0-0.1); Basophils % 0.3 %; Eosinophils % 0.2 %; Hematocrit 47.8 % (36-47); Lymphocytes # 2.1 10^3/uL (0.8-4.8); Lymphocytes % 13.2 %; Mean Corpuscular HGB Conc 34.1 g/dL (30-55); Mean Corpuscular Hemoglobin 32.6 pg (27-33); Mean Corpuscular Volume 95.6 fl (85-98); Mean Platelet Volume 9.9 fL (7.4-10.4); Monocytes # 0.7 10^3/uL (0.2-0.9); Monocytes % 4.2 %; Neutrophils # 12.83 10^3/uL (1.8-7.7); Neutrophils % 81.7 %; Nucleated Red Blood Cells % 0 %; Platelet Count 278 10^3/cmm (157-399); Red Cell Distribution Width 15.5 % (12.1-15.1); White Blood Count 15.72 10^3/uL (3.29-11.43)
[2024-04-29 15:26] LABS: Alanine Aminotransferase 7 U/L (0-33); Albumin Level 4.1 g/dL (3.5-5.2); Alkaline Phosphatase 102 U/L (35-105); Aspartate Amino Transferase 10 U/L (0-32); Blood Urea Nitrogen 7 mg/dL (8-23); Calcium 9.1 mg/dL (8.5-10.5); Carbon Dioxide 22 mmol/L (22-29); Chloride 98 mmol/L (98-107); Creatinine Clr Calc Pharmacy 52.6265; Globulin 3.5 g/dL (1.3-4.6); Glucose 293 mg/dL (65-115); Osmolality Calculated 289 mOsm/kg (285-295); Sodium 135 mmol/L (136-145); Total Bilirubin 0.2 mg/dL (0.15-1.2); Total Protein 7.6 g/dL (6.6-8.7)
[2024-04-29 15:59] LABS: Add Urine Microscopic? NO; Charge for UA Resulting for Rev
[2024-04-29 16:14] LABS: Bilirubin Urine Neg (Negative); Blood Urine Neg (Negative); Glucose Urine UA 1+ (Normal); Ketones Urine Negative (Negative); Leukocyte Esterase Urine Negative (Negative); Nitrate Urine Negative (Negative); Protein Urine Neg (Negative); Urine Appearance Clear (CLEAR); Urine Color Yellow (Yellow); Urobilinogen Urine Norm (Negative); pH Urine 6 (5-7)
--- NOTE | 2024-04-29 16:24 | CTR_ITS ---
PROCEDURE INFORMATION: Exam: CT Head Without Contrast Exam date and time: 04/29/2024 4:41 PM Age: 63 years old Clinical indication: Injury or trauma; Fall; Blunt trauma (contusions or hematomas); Patient HX: Patient says she alomost fell, denies hitting head or any problems with her head, patient seems alert and oriented TECHNIQUE: Imaging protocol: Computed tomography of the head without contrast. Radiation optimization: All CT scans at this facility use at least one of these dose optimization techniques: automated exposure control; mA and/or kV adjustment per patient size (includes targeted exams where dose is matched to clinical indication); or iterative reconstruction. COMPARISON: PT PET skull to thigh INIT [id number] 01/28/2023 9:57 AM RADIATION DOSE METRICS: Total DLP (mGy-cm): 994 FINDINGS: Brain: Age related brain involution is present. Diffuse subcortical and periventricular white matter hypodensities are most in favor with chronic small vessel disease. Cerebral ventricles: Compensatory exvacuo ventriculomegaly is present. Paranasal sinuses: Paranasal sinuses are clear. Mastoid air cells: The mastoid sinuses are clear. Orbital cavities: There have been bilateral intraocular lens replacements. Orbits are otherwise unremarkable. Bones: No acute skeletal abnormality or aggressive osseous lesion. Soft tissues: No acute soft tissue findings. Other findings: Intracranial atherosclerosis is present. CT/CT head wo con* [id number] IMPRESSION: No acute intracranial pathology.
--- NOTE | 2024-04-29 16:26 | P.HP_ITS ---
Providers/Chief Complaint 2 Primary Care Provider: So Copeland DO Chief Complaint: left swelling and pain History of Present Illness Amina Read is a 63 year old female with a past medical history of known right upper lobe lung cancer patient declines any treatment, COPD, smoker, type 2 diabetes mellitus, patient tells me that she was feeding her goats outside, when she tripped over a water bucket, and fell, left knee hitting the ground. Denies any head trauma, no loss of consciousness no preceding lightheadedness, dizziness, chest pain, palpitations no headache, blurry vision, strokelike symptoms. Denies any history of UTI, does have a chronic cough with her COPD and her lung malignancy, no hemoptysis, no calf pain, calf swelling Review of Systems 2 Const: Denies: fever(s) Card: Denies: chest pain Resp: Reports: non-productive cough; Denies: dyspnea GI: Denies: abdominal pain Medications/Allergies Home Medications Medication Instructions Recorded Confirmed Last Taken Type blood-glucose meter (Concurrent Incyle #100 ea 05/22/20 04/29/24 01/30/23 Rx Marne kit) blood sugar diagnostic (slinksetTouch #100 ea 07/13/20 04/29/24 01/30/23 Rx Verio test strips) blood-glucose meter (OneTouch #1 ea 07/15/20 04/29/24 01/30/23 Rx Verio Meter) albuterol sulfate 90 mcg/actuation 2 puff inhalation Q6H PRN 01/17/23 04/29/24 01/31/23 Rx aerosol inhaler shortness of breath or wheezing #8.5 grams atorvastatin 20 mg tablet 20 mg PO DAILY #90 tabs 09/18/23 04/29/24 Unknown Rx sertraline 100 mg tablet (Zoloft) 100 mg PO DAILY #30 tabs 02/12/24 04/29/24 Unknown Rx glipizide 2.5 mg tablet, extended 2.5 mg PO DAILY #30 tabs 03/01/24 04/29/24 04/29/24 Rx release 24 hr tiotropium bromide 18 mcg capsule 1 cap inhalation DAILY #60 03/01/24 04/29/24 04/29/24 Rx with inhalation device (Spiriva inhalations with HandiHaler) fluticasone propionate 50 2 spray intranasal DAILY #16 grams 03/11/24 04/29/24 Unknown Rx mcg/actuation nasal spray,suspension (Flonase Allergy Relief) tramadol 50 mg tablet 50 mg PO BID PRN pain #60 tabs 03/11/24 04/29/24 Unknown Rx gabapentin 300 mg capsule 300 mg PO TID 04/29/24 04/29/24 Unknown History olanzapine 20 mg tablet 20 mg PO BEDTIME 04/29/24 04/29/24 Unknown History trazodone 100 mg tablet 100 mg PO BEDTIME 04/29/24 04/29/24 Unknown History Allergies Allergy/AdvReac Type Severity Reaction Status Date / Time egg yolk Allergy Intermediate emesis Verified 04/29/24 12:53 aloe vera Allergy ALGY-Bliste Verified 04/29/24 12:53 r metformin Allergy Unknown Verified 04/29/24 12:53 Sulfa (Sulfonamide Allergy Unknown Verified 04/29/24 12:53 Antibiotics) naproxen AdvReac Mild chest Verified 04/29/24 12:53 pain, constipation and tongue goes numb sitagliptin [From Januvia] AdvReac Mild tongue Verified 04/29/24 12:53 swelling PFSH Acute 2 PFSH: Medical History Non-small cell lung cancer Nicotine use disorder Cannabis use disorder History of colon polyps Psychiatric care Type 2 diabetes mellitus, without long-term current use of insulin Dyslipidemia Schizophrenia Post-traumatic stress disorder, chronic Surgical History History of colonoscopy H/O tubal ligation H/O carpal tunnel repair Family History Other CAD (coronary artery disease) Diabetes Social History Smoking and tobacco/nicotine status: current every day tobacco/nicotine user cigarettes Packs smoked per day: 0.5 Alcohol intake: never Substance/Drug Use: current Substance/Drug use frequency: daily Vitals/I&O/Wt Last Vital Signs Temp 97.9 F 04/29/24 12:48 Pulse 69 04/29/24 12:48 Resp 17 04/29/24 14:31 BP 129/61 04/29/24 12:48 Pulse Ox 96 04/29/24 14:31 O2 Del Method Room Air 04/29/24 12:48 Weight last 48 hrs Weight 47.174 kg Physical Exam 2 Const: COMMON NORMALS: no acute distress and patient oriented x3 HENMT: COMMON NORMALS: normocephalic HEAD & SCALP: normocephalic Eye: COMMON NORMALS: Equal, round and reactive pupils present and EOMs intact bilaterally Neck/C-Spine: COMMON NORMALS: no JVD Resp: COMMON NORMALS: normal respiratory effort, No retractions, No use of accessory muscles and clear to auscultation bilaterally AUSCULTATION: clear to auscultation bilaterally Cardio: COMMON NORMALS: regular rate, regular rhythm, S1 normal heart sound present and S2 normal heart sound present RATE: regular rate RHYTHM: r egular rhythm HEART SOUNDS: S1 normal heart sound present and S2 normal heart sound present GI: COMMON NORMALS: Normal to inspection, nondistended, normoactive bowel sounds present, Soft to palpation and non-tender Extremity: COMMON NORMALS: no calf tenderness and no pedal edema NARRATIVE EXTREMITY EXAM: LLE in a brace Neuro: COMMON NORMALS: patient oriented x3 and CN's II-XII intact bilaterally Psych: COMMON NORMALS: mental status grossly normal Data 04/29/24 12:55 04/29/24 12:55 A&P Assessment and plan (1) Dyslipidemia: (2) Type 2 diabetes mellitus, without long-term current use of insulin: Qualifiers: Diabetes mellitus complication status: without complication Qualified Code(s): E11.9 - Type 2 diabetes mellitus without complications (3) Primary adenocarcinoma of upper lobe of right lung: (4) Tibial plateau fracture, left: Plan L tibial plateau fracture CT/CT knee LT wo con* [id number] IMPRESSION: 1. Mildly comminuted lateral tibial plateau fracture, depressed 7.5 mm. 2. Fracture extends at least 4 cm into the tibial metaphysis. Plan: -morphine for pain control -lovenox for dvt prophylaxis -dr mcnally consult Fall -ct head -pt ot History of R upper lobe lung cancer -patient decline any intervention, understands her condition is terminal COPD -current smoker Type 2 daibetes mellitus -LDSS DNR/DNI lovenox for dvt prophylaxis protonix for GI prophylaxis Attestations 2 Medical Necessity Statement*: patient requires hospitalization inpatient, greater than 2 midnights, for Left tibial plateau fracture Diagnoses Dyslipidemia E78.5 Type 2 diabetes mellitus without complication, without long-term current use of insulin E11.9 Diabetes mellitus complication status: without complication Primary adenocarcinoma of upper lobe of right lung C34.11 Tibial plateau fracture, left S82.142A
--- NOTE | 2024-04-29 16:33 | ECG_ITS ---
[facility] Test Date: 2024-04-29 Pat Name: Amina Read Department: Room: Gender: Female Pc Support Specialist: : 1960 Requested By: Mitch Amos Order Number: [id number] Jada MD: Drake Almonte M.D. Measurements Intervals [place] Rate: 55 P: 68 VT: 156 QRS: 72 QRSD: 82 T: 66 QT: 409 QTc: 393 Interpretive Statements SINUS BRADYCARDIA Compared to ECG 04/29/2024 15:23:28 No significant changes Electronically Signed On 04-30-2024 8:29:34 CDT by Drake Almonte M.D. [email or web address] general hospitalRightPath Paymentseast ohio regional hospitalZipwhip/store/OM/[id number]
[2024-04-29 16:52] LABS: INR 0.96 (0.8-1.2)
[2024-04-29 17:00] LABS: Lactic Sepsis W/Reflex 0.7 mmol/L (0.5-2.2)
[2024-04-29 17:01] LABS: Troponin(5th) Baseline < 6 ng/L (0-10)
[2024-04-29 17:12] LABS: NT Pro B Type Natriuretic Pept 74 pg/mL (0-125); Procalcitonin 0.03 ng/mL (0-0.5)
[2024-04-29 17:23] LABS: C Reactive Protein 7.3 mg/L (0.0-4.9)
[2024-04-29 18:00] VITALS: BP 81/49; PULSE 65; O2SAT 91
--- NOTE | 2024-04-29 18:20 | PC.NURSE ---
Lab staff came and told me that the patient has pulled her IV out. Patient is sleeping with the lights off in the room now when I went to check on her.
[2024-04-29] MEDS: sodium chloride 0.9% 250 ML 1000 ML IV (19:27)
[2024-04-29 20:00] VITALS: BP 162/65; PULSE 61; O2SAT 90
[2024-04-29 21:00] VITALS: BP 121/57; PULSE 64; RESP 15; TEMP 36.4; O2SAT 94
--- NOTE | 2024-04-29 21:00 | ECG_ITS ---
[facility] Test Date: 2024-04-29 Pat Name: Amina Read Department: Room: 260 Gender: Female Research Programmer: : 1960 Requested By: Mitch Amos Order Number: [id number] Jada MD: Drake Almonte M.D. Measurements Intervals [place] Rate: 57 P: 63 [place]: 154 QRS: 75 QRSD: 78 T: 73 QT: 422 QTc: 413 Interpretive Statements SINUS BRADYCARDIA Compared to ECG 04/29/2024 16:33:44 No significant changes Electronically Signed On 04-30-2024 8:30:39 CDT by Drake Almonte M.D. [email or web address] permanent[facility] centerBlueshift International Materials/store/[id number]
[2024-04-29 21:51] LABS: Estmated Average Glucose 171; Hemoglobin A1C 7.6 % (4.0-6.0)
[2024-04-29 21:56] LABS: Chol HDL Ratio 5.23 mg/dL (0.0-4.40); Cholesterol 157 mg/dL (0-200); HDL Cholesterol 30 mg/dL (60-100); LDL Cholesterol Calculated 86 mg/dL (50-129); LDL HDL Ratio 2.87 RATIO (0.00-3.22); Thyroid Stimulating Hormone 7.87 uIU/mL (0.27-4.20); Triglycerides 205 mg/dL (0-150)
[2024-04-29] MEDS: sodium chloride 0.9% 1,000 ML 75 ML IV (22:09)
[2024-04-29] MEDS: pantoprazole 40 mg SDV IVP (22:13)
[2024-04-29 22:14] LABS: Glucose Point of Care 127 mg/dL (70-110)
[2024-04-29] MEDS: enoxaparin 40 mg/0.4 mL Syringe SUBCUT (22:22)
--- NOTE | 2024-04-29 22:24 | ECG_ITS ---
[facility] Test Date: 2024-04-29 Pat Name: Amina Read Department: Room: 260 Gender: Female Staffing Consultant: : 1960 Requested By: Mitch Amos Order Number: [id number] Jada MD: Drake Almonte M.D. Measurements Intervals [place] Rate: 64 P: 64 NM: 159 QRS: 71 QRSD: 81 T: 70 QT: 411 QTc: 425 Interpretive Statements SINUS RHYTHM Compared to ECG 04/29/2024 21:25:39 Sinus bradycardia no longer present Electronically Signed On 04-30-2024 8:30:29 CDT by Drake Almonte M.D. [email or web address] Centersveter[facility] center san diegoMedia [employer]/store/[id number]
[2024-04-29 22:36] VITALS: BMI 19.6
--- NOTE | 2024-04-29 22:37 | PC.NURSE ---
Pt states she had an allergic reaction to one of the COVID-19 vaccines.
--- NOTE | 2024-04-29 22:43 | PC.NURSE ---
Pt stated she does not currently have adequate access to food. She also states she does not drive and does not have a vehicle, so she can't get around. She lives at home alone and does not have anyone that can help her if need be. She also states she has pets at home that need to be taken care of and is concerned about being able to return home to do so.
--- NOTE | 2024-04-29 22:58 | PC.NURSE ---
Multiple small wounds are present on the patient's right arm, right shoulder, and abdomen. These wound have a clearly defined border and the center tissue is pink and shiny. The patient states these are bug bites.
[2024-04-29 23:47] LABS: Troponin 5 6HR Delta 0.00001 ng/L (0-12)
[2024-04-30] VITALS (15 sets, daily range): BP systolic 123–170; BP diastolic 56–68; PULSE 66–83; RESP 16–20; TEMP 36.3–36.8; O2SAT 90–97
[2024-04-30] MEDS: morphine 4 mg/mL SDV 1 mL 2 MG IVP ×4 (05:58→21:29)
[2024-04-30 06:03] LABS: Basophils # 0.1 10^3/uL (0.0-0.1); Basophils % 0.5 %; Eosinophils # 0.1 10^3/uL (0.0-0.8); Eosinophils % 0.8 %; Hematocrit 44.2 % (36-47); Lymphocytes # 2.3 10^3/uL (0.8-4.8); Lymphocytes % 17.7 %; Mean Corpuscular HGB Conc 33.5 g/dL (30-55); Mean Corpuscular Hemoglobin 32.5 pg (27-33); Mean Corpuscular Volume 96.9 fl (85-98); Mean Platelet Volume 9.9 fL (7.4-10.4); Monocytes # 0.8 10^3/uL (0.2-0.9); Monocytes % 6.3 %; Neutrophils # 9.85 10^3/uL (1.8-7.7); Neutrophils % 74.3 %; Nucleated Red Blood Cells % 0 %; Platelet Count 237 10^3/cmm (157-399); Red Blood Count 4.56 10^6/uL (3.85-5.65); Red Cell Distribution Width 15.6 % (12.1-15.1); White Blood Count 13.25 10^3/uL (3.29-11.43)
[2024-04-30 06:22] LABS: Alanine Aminotransferase < 5 U/L (0-33); Albumin Level 3.2 g/dL (3.5-5.2); Alkaline Phosphatase 84 U/L (35-105); Anion Gap 15.2 (5-19); Aspartate Amino Transferase 9 U/L (0-32); Blood Urea Nitrogen 7 mg/dL (8-23); Calcium 8.2 mg/dL (8.5-10.5); Carbon Dioxide 22 mmol/L (22-29); Chloride 105 mmol/L (98-107); Creatinine Clr Calc Pharmacy 52.6265; Globulin 2.8 g/dL (1.3-4.6); Glomerular Filtration Rate 100.3 mL/min (90-130); Glucose 149 mg/dL (65-115); Magnesium 1.9 mg/dL (1.7-2.3); Osmolality Calculated 287 mOsm/kg (285-295); Potassium 4.2 mmol/L (3.5-5.1); Sodium 138 mmol/L (136-145); Total Bilirubin 0.4 mg/dL (0.15-1.2)
--- NOTE | 2024-04-30 09:07 | PC.CHAP ---
Pastoral Care Encounter/Spiritual Assessment Type of Contact [] Declined embedded linux engineer visit [] Patient/Family/Request visit [] Outpatient visit [] Follow-up visit [] Physician referral [] Code/Alert [x] Routine visit [] Staff referral [] Actively dying [] Patient sleeping [] Family support [] [] Out of room [] Palliative care [] [] Receiving care in room [] Pre-surgical visit [] Trauma [] Long length of stay [] ICU visit [] Other: Relational/Emotional Strength [x] Patient feels connected with others/family/visitors/staff [] Distress [] Loneliness/isolation [] Abandonment Spirituality of Patient [x] Person of [place] [] Attends Lutheran of their [place] [x] Believes in Prayer [] Reads Bible or Congregational materials [] There are Spiritual issues to be addressed Memorial Adviser Interventions [x] Prayer [x] Active listening [] Non-anxious presence [x] Spiritual/emotional support [] Crisis/trauma care [] Spiritual counseling [] Bereavement support [] Provided bereavement packet [] Provided Bible/devotional materials [] Provided toy/stuffed animal, coloring book to patient or family member [] Provided Communion [] Anointing/[place] [] Salvation [x] Completed spiritual assessment [] Other: Impact on Illness or Injury [] Angry [] Fearful [] Anxious [] Often cries [] Exhaustion [] Unable to work [] Unable to attend gnosticism [] Unable to walk/stand [] Unable to read [] Unable to drive [] Unable to eat/drink [] Unable to sleep [] Unable to be with family [] Patient intubated [] Other: Summary Time spent with patient 5 min
--- NOTE | 2024-04-30 09:52 | P.CONIM_ITS ---
Providers/Reason For Consult 2 Consulting Physician/Specialty*: Hospitalist Reason for Consult*: Tibial plateau fracture Attending Physician: Mitch Amos MD Primary Care Provider: So Copeland DO History of Present Illness History of Present Illness Amina Read is a 63 year old female she was feeding her goats outside, when she tripped over a water bucket, and fell, left knee hitting the ground. Review of Systems 2 Const: Denies: fever(s) Card: Denies: chest pain Resp: Reports: non-productive cough; Denies: dyspnea GI: Denies: abdominal pain Medications/Allergies Home Medications Medication Instructions Recorded Confirmed Last Taken Type blood-glucose meter (FreeStyle #100 ea 05/22/20 04/29/24 01/30/23 Rx [place] kit) blood sugar diagnostic (OneTouch #100 ea 07/13/20 04/29/24 01/30/23 Rx Verio test strips) blood-glucose meter (OneTouch #1 ea 07/15/20 04/29/24 01/30/23 Rx Verio Meter) albuterol sulfate 90 mcg/actuation 2 puff inhalation Q6H PRN 01/17/23 04/29/24 01/31/23 Rx aerosol inhaler shortness of breath or wheezing #8.5 grams atorvastatin 20 mg tablet 20 mg PO DAILY #90 tabs 09/18/23 04/29/24 Unknown Rx sertraline 100 mg tablet (Zoloft) 100 mg PO DAILY #30 tabs 02/12/24 04/29/24 Unknown Rx glipizide 2.5 mg tablet, extended 2.5 mg PO DAILY #30 tabs 03/01/24 04/29/24 04/29/24 Rx release 24 hr tiotropium bromide 18 mcg capsule 1 cap inhalation DAILY #60 03/01/24 04/29/24 04/29/24 Rx with inhalation device (Spiriva inhalations with HandiHaler) fluticasone propionate 50 2 spray intranasal DAILY #16 grams 03/11/24 04/29/24 Unknown Rx mcg/actuation nasal spray,suspension (Flonase Allergy Relief) tramadol 50 mg tablet 50 mg PO BID PRN pain #60 tabs 03/11/24 04/29/24 Unknown Rx gabapentin 300 mg capsule 300 mg PO TID 04/29/24 04/29/24 Unknown History olanzapine 20 mg tablet 20 mg PO BEDTIME 04/29/24 04/29/24 Unknown History trazodone 100 mg tablet 100 mg PO BEDTIME 04/29/24 04/29/24 Unknown History Allergies Allergy/AdvReac Type Severity Reaction Status Date / Time egg yolk Allergy Intermediate emesis Verified 04/29/24 12:53 aloe vera Allergy ALGY-Bliste Verified 04/29/24 12:53 r metformin Allergy Unknown Verified 04/29/24 12:53 Sulfa (Sulfonamide Allergy Unknown Verified 04/29/24 12:53 Antibiotics) naproxen AdvReac Mild chest Verified 04/29/24 12:53 pain, constipation and tongue goes numb sitagliptin [From ] AdvReac Mild tongue Verified 04/29/24 12:53 swelling Current Medications Generic Name Dose Route Start Last Admin Trade Name Freq PRN Reason Stop Dose Admin Atorvastatin Calcium 40 mg 04/29/24 21:15 04/29/24 22:23 Atorvastatin 40 Mg Tablet PO Not Given BEDTIME MATILDE Enoxaparin Sodium 40 mg 04/29/24 21:00 04/29/24 22:22 Enoxaparin 40 Mg/0.4 Ml Syringe SUBCUT 40 mg Q24H MATILDE Administration Sodium Chloride 1,000 mls @ 75 mls/hr 04/29/24 21:00 04/29/24 22:09 Sodium Chloride 0.9% IV 75 mls/hr .[id number] MATILDE Administration Insulin Human Lispro 0 unit 04/29/24 21:00 04/30/24 07:58 Insulin Lispro 100 Unit/1 Ml SUBCUT Not Given TIDWM MATILDE Protocol Morphine Sulfate 2 mg 04/29/24 21:00 04/30/24 05:58 Morphine 4 Mg/Ml Sdv 1 Ml IVP 2 mg Q4H PRN Administration SEVERE PAIN Pantoprazole Sodium 40 mg 04/29/24 21:00 04/29/24 22:13 Pantoprazole 40 Mg Sdv IVP 40 mg Q24H MATILDE Administration PFSH Acute 2 PFSH: Medical History Non-small cell lung cancer Nicotine use disorder Cannabis use disorder History of colon polyps Psychiatric care Type 2 diabetes mellitus, without long-term current use of insulin Dyslipidemia Schizophrenia Post-traumatic stress disorder, chronic Surgical History History of colonoscopy H/O tubal ligation H/O carpal tunnel repair Family History Other CAD (coronary artery disease) Diabetes Social History Smoking and tobacco/nicotine status: current every day tobacco/nicotine user cigarettes Packs smoked per day: 0.5 Alcohol intake: never Substance/Drug Use: current Substance/Drug use frequency: daily Vitals/I&O/Wt Last Vital Signs Temp 97.8 F 04/30/24 08:26 Pulse 70 04/30/24 08:26 Resp 18 04/30/24 08:26 BP 152/61 04/30/24 08:26 Pulse Ox 94 04/30/24 08:26 O2 Del Method Room Air 04/30/24 08:26 04/29/24 04/30/24 04/30/24 22:59 06:59 14:59 Intake Total 250 / 250 Balance 250 / 250 Weight last 48 hrs Weight 109 lb 12.8 oz Weight 104 lb Weight 104 lb Physical Exam 2 Narrative: Minimal swelling of the left knee. Data 04/30/24 05:12 04/30/24 05:12 A&P Assessment and plan (1) Tibial plateau fracture, left: Planned ORIF tomorrow. N.p.o. after midnight. Qualifiers: Encounter type: initial encounter Fracture type: closed Qualified Code(s): S82.142A - Displaced bicondylar fracture of left tibia, initial encounter for closed fracture Coding Level of Care Code Acute Code for Chg Fwd Diagnoses Closed fracture of left tibial plateau, initial encounter S82.142A Encounter type: initial encounter Fracture type: closed
[2024-04-30 11:31] LABS: Glucose Point of Care 126 mg/dL (70-110)
[2024-04-30] MEDS: sodium chloride 0.9% 1,000 ML 75 ML IV (11:41)
--- NOTE | 2024-04-30 14:22 | P.PN_ITS ---
Subjective 2 Subjective: Patient was seen this morning, she has no complaints, no fevers, chills, no cough,, she is alert to person, to place, not time she follows all commands, her pain is well-controlled, she has no specific complaints, she plans on returning home, she has a neighbor who can help with her chores around her house, help take care of her animals Vitals/I&O/Wt Last Vital Signs Temp 97.3 F L 04/30/24 11:48 Pulse 80 04/30/24 11:48 Resp 19 H 04/30/24 11:48 BP 170/65 04/30/24 11:48 Pulse Ox 91 04/30/24 11:48 O2 Del Method Room Air 04/30/24 11:48 04/29/24 04/30/24 04/30/24 22:59 06:59 14:59 Intake Total 250 / 250 1480 / 1480 Balance 250 / 250 1480 / 1480 Weight last 48 hrs Weight 49.804 kg Weight 47.174 kg Weight 47.174 kg Physical Exam 2 Const: COMMON NORMALS: no acute distress ORIENTATION/CONSCIOUSNESS: Yes awake, Yes oriented to person and Yes oriented to place Resp: COMMON NORMALS: normal respiratory effort, No retractions, No use of accessory muscles and clear to auscultation bilaterally AUSCULTATION: clear to auscultation bilaterally Cardio: COMMON NORMALS: regular rate, regular rhythm, S1 normal heart sound present and S2 normal heart sound present RATE: regular rate RHYTHM: r egular rhythm HEART SOUNDS: S1 normal heart sound present and S2 normal heart sound present GI: COMMON NORMALS: Normal to inspection, nondistended, normoactive bowel sounds present and non-tender Extremity: COMMON NORMALS: no pedal edema Neuro: SENSORIUM/ORIENTATION: Yes oriented to person and Yes oriented to place Data 04/30/24 05:12 04/30/24 05:12 A&P Assessment and plan (1) Dyslipidemia: (2) Type 2 diabetes mellitus, without long-term current use of insulin: Qualifiers: Diabetes mellitus complication status: without complication Qualified Code(s): E11.9 - Type 2 diabetes mellitus without complications (3) Primary adenocarcinoma of upper lobe of right lung: (4) Tibial plateau fracture, left: Qualifiers: Encounter type: initial encounter Fracture type: closed Qualified Code(s): S82.142A - Displaced bicondylar fracture of left tibia, initial encounter for closed fracture Plan L tibial plateau fracture CT/CT knee LT wo con* [id number] IMPRESSION: 1. Mildly comminuted lateral tibial plateau fracture, depressed 7.5 mm. 2. Fracture extends at least 4 cm into the tibial metaphysis. Plan: -morphine for pain control -lovenox for dvt prophylaxis -dr mcnally consult Fall -ct head no acute findings -pt ot History of R upper lobe lung cancer -patient decline any intervention, understands her condition is terminal COPD -current smoker Type 2 daibetes mellitus -LDSS DNR/DNI lovenox for dvt prophylaxis protonix for GI prophylaxis Attestations 2 Medical Necessity Statement*: Patient requires hospitalization for left tibial plateau fracture, Diagnoses Dyslipidemia E78.5 Type 2 diabetes mellitus without complication, without long-term current use of insulin E11.9 Diabetes mellitus complication status: without complication Primary adenocarcinoma of upper lobe of right lung C34.11 Closed fracture of left tibial plateau, initial encounter S82.142A Encounter type: initial encounter Fracture type: closed
[2024-04-30 15:01] LABS: Free T4 Free Thyroxine 1.01 ng/dL (0.82-1.77); T3 Free 2.8 PG/ML (2.0-4.4)
[2024-04-30 16:54] LABS: Glucose Point of Care 137 mg/dL (70-110)
[2024-04-30 20:36] LABS: Glucose Point of Care 218 mg/dL (70-110)
[2024-04-30] MEDS: atorvastatin 40 mg Tablet PO (21:28)
[2024-04-30] MEDS: pantoprazole 40 mg SDV IVP (21:28)
[2024-04-30] MEDS: OLANZapine 10 mg TABLET 20 MG PO (22:28)
[2024-05-01] VITALS (24 sets, daily range): BP systolic 72–160; BP diastolic 51–85; PULSE 67–100; RESP 14–32; TEMP 36.4–37.3; O2SAT 90–98
[2024-05-01] MEDS: sodium chloride 0.9% 1,000 ML 75 ML IV ×2 (00:33→19:10)
[2024-05-01] MEDS: morphine 4 mg/mL SDV 1 mL 2 MG IVP ×4 (01:52→22:44)
[2024-05-01 06:22] LABS: Glucose Point of Care 155 mg/dL (70-110)
[2024-05-01] MEDS: sodium chloride 0.9% 1,000 ML 30 ML IV (09:41)
--- NOTE | 2024-05-01 10:01 | ANES.PREANE2 ---
Pre-Anesthetic Assessment Height/Weight: Height 1.55 m Weight 52.526 kg Temp Pulse Resp BP Pulse Ox O2 Del Method 99.1 F 68 17 85/54 94 Room Air 05/01/24 09:35 05/01/24 09:35 05/01/24 09:35 05/01/24 09:35 05/01/24 09:35 05/01/24 09:35 Operation Date: 05/01/24 10:45 Proposed Procedures p ORIF Tibial Plateau(Left) - Julien Nam, Familial anesthetic complications: None Was Beta Lesa taken within 24 hours: N/A Was Clonidine taken within 24 hours: N/A Last intake: Intake Last Liquid Date 04/30/24 Last Liquid Time 23:00 Last Solid Date 04/30/24 Last Solid Time 23:00 Social Tobacco and No alcohol Exam alert, oriented x 3, clear to auscultation bilaterally and regular rate & rhythm diminished Airway Mallampati: Class II Dentition: other (no eeth) Pulmonary Chronic Obstructive Pulmonary Disease Lung CA Metabolic Diabetes Mellitus and Hyperlipidemia Anesthetic Plan ASA status: 4 Anesthesia: General Risk of > 500 ml blood loss (7ml/kg in children): No Medications/Allergies Home Medications Medication Instructions Recorded Confirmed Last Taken Type blood-glucose meter (FINDING ROVERStyle #100 ea 05/22/20 04/29/24 01/30/23 Rx [place] kit) blood sugar diagnostic (OneTouch #100 ea 07/13/20 04/29/24 01/30/23 Rx Verio test strips) blood-glucose meter (OneTouch #1 ea 07/15/20 04/29/24 01/30/23 Rx Verio Meter) albuterol sulfate 90 mcg/actuation 2 puff inhalation Q6H PRN 01/17/23 04/29/24 01/31/23 Rx aerosol inhaler shortness of breath or wheezing #8.5 grams atorvastatin 20 mg tablet 20 mg PO DAILY #90 tabs 09/18/23 04/29/24 Unknown Rx sertraline 100 mg tablet (Zoloft) 100 mg PO DAILY #30 tabs 02/12/24 04/29/24 Unknown Rx glipizide 2.5 mg tablet, extended 2.5 mg PO DAILY #30 tabs 03/01/24 04/29/24 04/29/24 Rx release 24 hr tiotropium bromide 18 mcg capsule 1 cap inhalation DAILY #60 03/01/24 04/29/24 04/29/24 Rx with inhalation device (Spiriva inhalations with HandiHaler) fluticasone propionate 50 2 spray intranasal DAILY #16 grams 03/11/24 04/29/24 Unknown Rx mcg/actuation nasal spray,suspension (Flonase Allergy Relief) tramadol 50 mg tablet 50 mg PO BID PRN pain #60 tabs 03/11/24 04/29/24 Unknown Rx gabapentin 300 mg capsule 300 mg PO TID 04/29/24 04/29/24 Unknown History olanzapine 20 mg tablet 20 mg PO BEDTIME 04/29/24 04/29/24 Unknown History trazodone 100 mg tablet 100 mg PO BEDTIME 04/29/24 04/29/24 Unknown History Allergies Allergy/AdvReac Type Severity Reaction Status Date / Time egg yolk Allergy Intermediate emesis Verified 04/29/24 12:53 aloe vera Allergy ALGY-Bliste Verified 04/29/24 12:53 r metformin Allergy Unknown Verified 04/29/24 12:53 Sulfa (Sulfonamide Allergy Unknown Verified 04/29/24 12:53 Antibiotics) naproxen AdvReac Mild chest Verified 04/29/24 12:53 pain, constipation and tongue goes numb sitagliptin [From [employer]] AdvReac Mild tongue Verified 04/29/24 12:53 swelling Current Medications Generic Name Dose Route Start Last Admin Trade Name Freq PRN Reason Stop Dose Admin Atorvastatin Calcium 40 mg 04/29/24 21:15 04/30/24 21:28 Atorvastatin 40 Mg Tablet PO 40 mg BEDTIME MATILDE Administration Enoxaparin Sodium 40 mg 04/29/24 21:00 04/30/24 10:16 Enoxaparin 40 Mg/0.4 Ml Syringe SUBCUT Not Given Q24H MATILDE Sodium Chloride 1,000 mls @ 75 mls/hr 04/29/24 21:00 05/01/24 00:33 Sodium Chloride 0.9% IV 75 mls/hr .[id number] MATILDE Administration Sodium Chloride 1,000 mls @ 30 mls/hr 05/01/24 09:45 05/01/24 09:41 Sodium Chloride 0.9% IV 05/02/24 09:44 30 mls/hr .Q24H MATILDE Administration Insulin Human Lispro 0 unit 04/29/24 21:00 05/01/24 07:38 Insulin Lispro 100 Unit/1 Ml SUBCUT Not Given TIDWM MATILDE Protocol Morphine Sulfate 2 mg 04/29/24 21:00 05/01/24 01:52 Morphine 4 Mg/Ml Sdv 1 Ml IVP 2 mg Q4H PRN Administration SEVERE PAIN Olanzapine 20 mg 04/30/24 22:15 04/30/24 22:28 Olanzapine 10 Mg Tablet PO 20 mg BEDTIME MATILDE Administration Pantoprazole Sodium 40 mg 04/29/24 21:00 04/30/24 21:28 Pantoprazole 40 Mg Sdv IVP 40 mg Q24H MATILDE Administration PFSH Anesthesia Medical History Non-small cell lung cancer Nicotine use disorder Cannabis use disorder History of colon polyps Psychiatric care Type 2 diabetes mellitus, without long-term current use of insulin Dyslipidemia Schizophrenia Post-traumatic stress disorder, chronic Surgical History History of colonoscopy H/O tubal ligation H/O carpal tunnel repair Family History Other CAD (coronary artery disease) Diabetes Social History Smoking and tobacco/nicotine status: current every day tobacco/nicotine user cigarettes Packs smoked per day: 0.5 Alcohol intake: never Substance/Drug Use: current Substance/Drug use frequency: daily Data Anesthesia 04/30/24 05:12 04/30/24 05:12 Short CBC 04/29/24 04/30/24 Range/Units 12:55 05:12 WBC 15.72 H 13.25 H (3.29-11.43) 10^3/uL Hgb 16.30 14.80 (11.27-16.99) g/dL Hct 47.8 H 44.2 (36-47) % MCV 95.6 96.9 (85-98) fl Plt Count 278 237 (157-399) 10^3/cmm Neut % (Auto) 81.7 74.3 % Neut # (Auto) 12.83 H 9.85 H (1.8-7.7) 10^3/uL BMP 04/29/24 04/30/24 12:55 05:12 Sodium 135 L 138 Potassium 4.0 4.2 Chloride 98 105 Carbon Dioxide 22 22 BUN 7 L 7 L Creatinine 0.7 0.6 Glucose 293 H 149 H Calcium 9.1 8.2 L Cardiac Enzymes 04/29/24 04/29/24 Range/Units 16:31 22:59 Troponin T Baseline < 6 (0-10) ng/L Troponin T Hi Sens 6Hr 6.00 (0-10) ng/L Troponin T Hi Sens 6Hr Delta 0.21632 (0-12) ng/L NT-Pro-B Natriuret Pep 74 (0-125) pg/mL Liver Function 04/29/24 04/30/24 Range/Units 12:55 05:12 Total Bilirubin 0.2 0.4 (0.15-1.2) mg/dL AST 10 9 (0-32) U/L ALT 7 < 5 (0-33) U/L Alkaline Phosphatase 102 84 (35-105) U/L Albumin 4.1 3.2 L (3.5-5.2) g/dL Urine 04/29/24 Range/Units 15:40 Urine Color Yellow (Yellow) Urine Appearance Clear (CLEAR) Urine pH 6 (5-7) Ur Specific [place] 1.010 (1.005-1.030) Urine Protein Neg (Negative) Urine Glucose (UA) 1+ H (Normal) Urine Ketones Negative (Negative) Urine Nitrate Negative (Negative) Urine Bilirubin Neg (Negative) Ur Leukocyte Esterase Negative (Negative) Coags 04/29/24 16:31 PT 13.10 INR 0.96 C-Reactive Protein 7.3 H Cardiac Studies: No Data to Display
--- NOTE | 2024-05-01 10:24 | W.PM.OPSUD ---
Surgery/Procedure H&P Update DATE OF PROCEDURE: May 01, 2024 DATE H&P PERFORMED: 04/30/24 H&P UPDATE INFORMATION: I have reviewed H&P completed within last 30 days, I have examined patient prior to procedure and No changes to prior documentation PLANNED PROCEDURE: Operation Date: 05/01/24 10:45 Proposed Procedures p ORIF Tibial Plateau(Left) - Julien Nam DO
[2024-05-01] MEDS: ceFAZolin 2,000 mg SDV 2000 MG IVP ×2 (10:45→18:27)
--- NOTE | 2024-05-01 12:56 | PM.OP ---
Operative Report Date of procedure: May 01, 2024 Pre-op diagnosis: Left lateral depressed split tibial plateau fracture Post-op diagnosis: Same Procedure done: Open reduction internal fixation of tibial plateau fracture Surgeon: Julien Nam DO Estimated blood loss (mL): 10 Procedure: Open reduction internal fixation of tibial plateau fracture Patient is brought the operative suite after undergoing anesthesia placed in the supine position. All areas impingement well-padded. Patient's prepped draped also fashion. Skin incision made over the lateral to plateau the IT band and fascia was split muscle was taken off the bone with an elevator. A bone window was made in order to facilitate tamping up the depressed tibial plateau fracture. The pieces were tamped up using a bone tamp under C-arm guidance. Once the fracture was reduced a lateral tibial plateau plate from [employer] was placed. K wires in position and then a raft of partially-threaded screws and 4 threaded screws were placed across the joint. The screws were placed into the shaft as well. And then a small hole was made and bone cement was inserted into the void that was created from the fragments to be reduced. Once this was complete AP lateral fluoroscopy ensured that the fracture was reduced and hardware is in good position. Wounds were irrigated closed with Vicryl and nylon suture. Sterile dressings were applied patient transferred to PACU in stable addition.
--- NOTE | 2024-05-01 13:09 | XR_ITS ---
WS: [id number] INTRAOPERATIVE TECHNIQUE: 3 Spot fluoroscopic images for intraoperative purposes. FLUOROSCOPY TIME: 144.8 seconds CLINICAL INFORMATION: orif tib, or pic FINDINGS: Lateral plate and screw fixation proximal tibia. Hardware appears in good position. XR/XR tibia fibula LT 2V [id number] IMPRESSION: Images obtained for intraoperative purposes.
[2024-05-01] MEDS: fentaNYL 50 mcg/mL INJ 2mL IVP (13:14)
--- NOTE | 2024-05-01 13:30 | ANE.PACU2 ---
Inpatient post-anesthesia follow up: Airway intact: Yes Vital signs: Temperature 98.4 F Pulse Rate 93 Respiratory Rate 21 Blood Pressure 93/61 Pulse Oximetry 92 Oxygen Delivery Me thod Nasal Cannula Oxygen Flow Rate 3 Fraction of Inspir ed Oxygen Hydration adequate: Yes Nausea and vomiting: No Pain level: 1 Mental status: Baseline
--- NOTE | 2024-05-01 15:43 | P.PN_ITS ---
Subjective 2 Subjective: Patient was seen this morning, currently n.p.o., pain is well-controlled, plan on surgical intervention today Vitals/I&O/Wt Last Vital Signs Temp 97.7 F 05/01/24 13:30 Pulse 83 05/01/24 13:30 Resp 32 H 05/01/24 14:28 BP 94/60 05/01/24 13:30 Pulse Ox 93 05/01/24 13:30 O2 Del Method Nasal Cannula 05/01/24 13:28 O2 Flow Rate 3 05/01/24 13:28 05/01/24 05/01/24 05/01/24 06:59 14:59 22:59 Intake Total 965 / 3405 100 / 100 Output Total 100 / 100 Balance 965 / 3405 0 / 0 Weight last 48 hrs Weight 52.526 kg Weight 49.804 kg Weight 47.174 kg Physical Exam 2 Const: COMMON NORMALS: no acute distress and patient oriented x3 Resp: COMMON NORMALS: normal respiratory effort, No retractions, No use of accessory muscles and clear to auscultation bilaterally AUSCULTATION: clear to auscultation bilaterally Cardio: COMMON NORMALS: regular rate, regular rhythm, S1 normal heart sound present and S2 normal heart sound present RATE: regular rate RHYTHM: r egular rhythm HEART SOUNDS: S1 normal heart sound present and S2 normal heart sound present GI: COMMON NORMALS: Normal to inspection, nondistended, normoactive bowel sounds present and non-tender Extremity: COMMON NORMALS: no pedal edema Neuro: COMMON NORMALS: patient oriented x3 Psych: COMMON NORMALS: mental status grossly normal Data 04/30/24 05:12 04/30/24 05:12 A&P Assessment and plan (1) Dyslipidemia: (2) Type 2 diabetes mellitus, without long-term current use of insulin: Qualifiers: Diabetes mellitus complication status: without complication Qualified Code(s): E11.9 - Type 2 diabetes mellitus without complications (3) Primary adenocarcinoma of upper lobe of right lung: (4) Tibial plateau fracture, left: Qualifiers: Encounter type: initial encounter Fracture type: closed Qualified Code(s): S82.142A - Displaced bicondylar fracture of left tibia, initial encounter for closed fracture Plan L tibial plateau fracture CT/CT knee LT wo con* [id number] IMPRESSION: 1. Mildly comminuted lateral tibial plateau fracture, depressed 7.5 mm. 2. Fracture extends at least 4 cm into the tibial metaphysis. Plan: -morphine for pain control -lovenox for dvt prophylaxis -dr mcnally consult Fall -ct head no acute findings -pt ot History of R upper lobe lung cancer -patient decline any intervention, understands her condition is terminal COPD -current smoker Type 2 daibetes mellitus -LDSS DNR/DNI lovenox for dvt prophylaxis protonix for GI prophylaxis Attestations 2 Medical Necessity Statement*: Patient requires hospitalization for tibial plateau fracture Diagnoses Dyslipidemia E78.5 Type 2 diabetes mellitus without complication, without long-term current use of insulin E11.9 Diabetes mellitus complication status: without complication Primary adenocarcinoma of upper lobe of right lung C34.11 Closed fracture of left tibial plateau, initial encounter S82.142A Encounter type: initial encounter Fracture type: closed
[2024-05-01 16:41] LABS: Glucose Point of Care 246 mg/dL (70-110)
[2024-05-01 20:25] LABS: Glucose Point of Care 277 mg/dL (70-110)
[2024-05-01] MEDS: enoxaparin 40 mg/0.4 mL Syringe SUBCUT (20:37)
[2024-05-01] MEDS: OLANZapine 10 mg TABLET 20 MG PO (20:40)
[2024-05-01] MEDS: atorvastatin 40 mg Tablet PO (20:40)
[2024-05-01] MEDS: pantoprazole 40 mg SDV IVP (20:40)
[2024-05-02] VITALS: BP 144/56; PULSE 64; RESP 18; TEMP 36.8; O2SAT 90
[2024-05-02 03:18] VITALS: RESP 16
[2024-05-02] MEDS: ceFAZolin 2,000 mg SDV 2000 MG IVP ×2 (03:18→11:30)
[2024-05-02] MEDS: morphine 4 mg/mL SDV 1 mL 2 MG IVP ×2 (03:18→10:00)
[2024-05-02 04:00] VITALS: BP 147/62; PULSE 78; RESP 16; TEMP 36.7; O2SAT 91
[2024-05-02 05:07] LABS: Basophils % 0.2 %; Eosinophils % 0.1 %; Hematocrit 35.1 % (36-47); Lymphocytes # 2.5 10^3/uL (0.8-4.8); Lymphocytes % 15.2 %; Mean Corpuscular Hemoglobin 32.1 pg (27-33); Mean Corpuscular Volume 97.2 fl (85-98); Monocytes # 1.4 10^3/uL (0.2-0.9); Monocytes % 8.4 %; Neutrophils # 12.22 10^3/uL (1.8-7.7); Neutrophils % 75.7 %; Nucleated Red Blood Cells % 0 %; Platelet Count 179 10^3/cmm (157-399); Red Blood Count 3.61 10^6/uL (3.85-5.65); Red Cell Distribution Width 15.3 % (12.1-15.1); White Blood Count 16.15 10^3/uL (3.29-11.43)
[2024-05-02 05:31] LABS: Alanine Aminotransferase 6 U/L (0-33); Alkaline Phosphatase 62 U/L (35-105); Anion Gap 13.4 (5-19); Aspartate Amino Transferase 13 U/L (0-32); Blood Urea Nitrogen 5 mg/dL (8-23); Calcium 7.7 mg/dL (8.5-10.5); Carbon Dioxide 23 mmol/L (22-29); Chloride 104 mmol/L (98-107); Creatinine Clr Calc Pharmacy 54.9959; Globulin 2.6 g/dL (1.3-4.6); Glomerular Filtration Rate 123.8 mL/min (90-130); Glucose 198 mg/dL (65-115); Magnesium 1.6 mg/dL (1.7-2.3); Osmolality Calculated 287 mOsm/kg (285-295); Potassium 3.4 mmol/L (3.5-5.1); Sodium 137 mmol/L (136-145); Total Bilirubin 0.2 mg/dL (0.15-1.2); Total Protein 5.6 g/dL (6.6-8.7)
[2024-05-02 06:00] VITALS: PULSE 74
[2024-05-02 06:47] LABS: Glucose Point of Care 185 mg/dL (70-110)
[2024-05-02 07:10] VITALS: BP 145/58; PULSE 65; TEMP 37.5; O2SAT 91
--- NOTE | 2024-05-02 08:23 | P.PN_ITS ---
Subjective 2 Subjective: Patient is doing well this morning pain controlled. Vitals/I&O/Wt Last Vital Signs Temp 99.5 F 05/02/24 07:10 Pulse 65 05/02/24 07:10 Resp 16 05/02/24 04:00 BP 145/58 05/02/24 07:10 Pulse Ox 91 05/02/24 07:10 O2 Del Method Room Air 05/02/24 07:10 O2 Flow Rate 3 05/01/24 13:28 05/01/24 05/02/24 05/02/24 22:59 06:59 14:59 Intake Total 720 / 1820 Balance 720 / 1720 Weight last 48 hrs Weight 115 lb 12.8 oz Physical Exam 2 Narrative: Dressing clean dry and intact Data 05/02/24 04:31 05/02/24 04:31 A&P Assessment and plan (1) Tibial plateau fracture, left: Patient is postop day #1 left tibial plateau fracture Okay to discharge from orthopedic standpoint Follow-up in Ortho clinic in 2 weeks DVT prophylaxis with Lovenox Ice and elevate leg Nonweightbearing left lower extremity Qualifiers: Encounter type: initial encounter Fracture type: closed Qualified Code(s): S82.142A - Displaced bicondylar fracture of left tibia, initial encounter for closed fracture Attestations 2 Medical Necessity Statement*: Per primary service Coding Level of Care Code Acute Code for Chg Fwd Diagnoses Closed fracture of left tibial plateau, initial encounter S82.142A Encounter type: initial encounter Fracture type: closed
[2024-05-02] MEDS: insulin lispro 100 unit/1 mL SUBCUT (09:59)
[2024-05-02] MEDS: potassium chloride ER 20 mEq Tablet 40 MEQ PO (10:00)
[2024-05-02] MEDS: sodium chloride 0.9% 1,000 ML 75 ML IV (10:00)
[2024-05-02] MEDS: magnesium lactate 84 mg Tablet PO (10:00)
[2024-05-02 11:27] LABS: Glucose Point of Care 130 mg/dL (70-110)
[2024-05-02 11:28] VITALS: BP 143/67
--- NOTE | 2024-05-02 13:36 | P.PN_ITS ---
Subjective 2 Subjective: Patient was seen this morning, she does complain of pain, she is not exactly sure how she can manage at home, denies any chest pain, no shortness of breath Vitals/I&O/Wt Last Vital Signs Temp 99.5 F 05/02/24 07:10 Pulse 65 05/02/24 07:10 Resp 16 05/02/24 04:00 BP 143/67 05/02/24 11:28 Pulse Ox 91 05/02/24 07:10 O2 Del Method Room Air 05/02/24 07:10 O2 Flow Rate 3 05/01/24 13:28 05/01/24 05/02/24 05/02/24 22:59 06:59 14:59 Intake Total 720 / 1820 1240 / 1240 Balance 720 / 1720 1240 / 1240 Weight last 48 hrs Weight 52.526 kg Physical Exam 2 Const: COMMON NORMALS: no acute distress and patient oriented x3 Resp: COMMON NORMALS: normal respiratory effort, No retractions, No use of accessory muscles and clear to auscultation bilaterally AUSCULTATION: clear to auscultation bilaterally Cardio: COMMON NORMALS: regular rate, regular rhythm, S1 normal heart sound present and S2 normal heart sound present RATE: regular rate RHYTHM: r egular rhythm HEART SOUNDS: S1 normal heart sound present and S2 normal heart sound present GI: COMMON NORMALS: Normal to inspection, nondistended, normoactive bowel sounds present and non-tender Extremity: NARRATIVE EXTREMITY EXAM: No pitting edema, Neuro: COMMON NORMALS: patient oriented x3 Psych: COMMON NORMALS: mental status grossly normal Data 05/02/24 04:31 05/02/24 04:31 A&P Assessment and plan (1) Dyslipidemia: (2) Type 2 diabetes mellitus, without long-term current use of insulin: Qualifiers: Diabetes mellitus complication status: without complication Qualified Code(s): E11.9 - Type 2 diabetes mellitus without complications (3) Primary adenocarcinoma of upper lobe of right lung: (4) Tibial plateau fracture, left: Qualifiers: Encounter type: initial encounter Fracture type: closed Qualified Code(s): S82.142A - Displaced bicondylar fracture of left tibia, initial encounter for closed fracture Plan L tibial plateau fracture CT/CT knee LT wo con* [id number] IMPRESSION: 1. Mildly comminuted lateral tibial plateau fracture, depressed 7.5 mm. 2. Fracture extends at least 4 cm into the tibial metaphysis. ? Status post surgical intervention Plan: -morphine for pain control -lovenox for dvt prophylaxis -dr mcnally consult Fall -ct head no acute findings -pt ot History of R upper lobe lung cancer -patient decline any intervention, understands her condition is terminal COPD -current smoker Type 2 daibetes mellitus -LDSS DNR/DNI lovenox for dvt prophylaxis protonix for GI prophylaxis Attestations 2 Medical Necessity Statement*: Plan for today PT OT, after her tibial plateau fracture Diagnoses Dyslipidemia E78.5 Type 2 diabetes mellitus without complication, without long-term current use of insulin E11.9 Diabetes mellitus complication status: without complication Primary adenocarcinoma of upper lobe of right lung C34.11 Closed fracture of left tibial plateau, initial encounter S82.142A Encounter type: initial encounter Fracture type: closed
--- NOTE | 2024-05-02 13:53 | PM.DCS ---
Discharge Providers Date of Admission: 04/29/24 15:49 Date of Discharge: May 02, 2024 Attending Provider at Admission: Mitch Amos MD Attending Provider at Discharge: Mitch Amos MD Primary Care Provider: So Copeland DO Diagnoses at Discharge Discharge Diagnosis (1) Dyslipidemia: Status: Chronic (2) Type 2 diabetes mellitus, without long-term current use of insulin: Status: Chronic Qualifiers: Diabetes mellitus complication status: without complication Qualified Code(s): E11.9 - Type 2 diabetes mellitus without complications (3) Primary adenocarcinoma of upper lobe of right lung: Status: Acute (4) Tibial plateau fracture, left: Status: Acute Qualifiers: Encounter type: initial encounter Fracture type: closed Qualified Code(s): S82.142A - Displaced bicondylar fracture of left tibia, initial encounter for closed fracture Reason for Visit Reason for Visit: left swelling and pain Hospital Course Hospital Course Amina Read is a 63 year old female with a past medical history of known right upper lobe lung cancer patient declines any treatment, COPD, smoker, type 2 diabetes mellitus, patient tells me that she was feeding her goats outside, when she tripped over a water bucket, and fell, left knee hitting the ground. Denies any head trauma, no loss of consciousness no preceding lightheadedness, dizziness, chest pain, palpitations no headache, blurry vision, strokelike symptoms. Denies any history of UTI, does have a chronic cough with her COPD and her lung malignancy, no hemoptysis, no calf pain, calf swelling Patient presented to [facility] for left tibial plateau fracture, status postsurgical intervention by Dr. Nam, discharged on hydrocodone for pain control, Eliquis for DVT prophylaxis, follow-up with Dr. Nam as outpatient For history of COPD, current smoker I have had an extensive discussion with patient about smoking cessation counseling For her history of right upper lobe lung cancer, patient declines any interventions, understands her condition is terminal. I have had a detailed discussion with her about my worries about her clinical deterioration, complications associated with the right upper lobe lung cancer including but not limited to deconditioning, blood clots, infections, morbidity and mortality associated. My concern is is that if her condition becomes critical, and she cannot make decisions for herself, we might be doing interventions that are against her wishes. I have recommended for her to get healthcare directives I have recommended for her to go to intermediate facility however she declines, unfortunately she also does not have insurance, she lives at home by herself, but does have a neighbor who checks up on her, who helps take care of her animals, discussed my concerns for her being at home without appropriate help, still adamant about going home Physical Exam Const: COMMON NORMALS: no acute distress and patient oriented x3 Resp: COMMON NORMALS: normal respiratory effort, No retractions, No use of accessory muscles and clear to auscultation bilaterally AUSCULTATION: clear to auscultation bilaterally Cardio: COMMON NORMALS: regular rate, regular rhythm, S1 normal heart sound present and S2 normal heart sound present RATE: regular rate RHYTHM: regular rhythm HEART SOUNDS: S1 normal heart sound present and S2 normal heart sound present GI: COMMON NORMALS: Normal to inspection, nondistended, normoactive bowel sounds present and non-tender Extremity: COMMON NORMALS: no pedal edema Neuro: COMMON NORMALS: patient oriented x3 Psych: COMMON NORMALS: mental status grossly normal Discharge Data Studies Completed and Pending Completed Studies During Hospitalization Category Date Time Status CT head wo con* [id number] Stat Cat Scan 04/29/24 16:[address] knee LT wo con* [id number] Stat Cat Scan 04/29/24 14:07 Completed XR chest 1V portable [id number] Urgent Exams 04/29/24 15:00 Completed XR knee LT 3V* [id number] Stat Exams 04/29/24 13:02 Completed XR tibia fibula LT 2V [id number] Routine Exams 05/01/24 13:09 Completed Pending at discharge Category Date Time Status Complete Blood Count w/Auto AM LABS Lab 05/03/24 04:00 Ordered Complete Blood Count w/Auto AM LABS Lab 05/04/24 04:00 Ordered Comprehensive Metabolic Panel AM LABS Lab 05/03/24 04:00 Ordered Comprehensive Metabolic Panel AM LABS Lab 05/04/24 04:00 Ordered Magnesium AM LABS Lab 05/03/24 04:00 Ordered Magnesium AM LABS Lab 05/04/24 04:00 Ordered Radiology Impressions Knee X-Ray 04/29/24 13:02 IMPRESSION: 1. Very high concern for subtle/minimally displaced fractures at the left intercondylar eminence and left tibial plateau. Correlation with noncontrast CT of the knee recommended. 2. Moderate suprapatellar effusion. 3. Anterior knee swelling. Knee CT 04/29/24 14:07 IMPRESSION: 1. Mildly comminuted lateral tibial plateau fracture, depressed 7.5 mm. 2. Fracture extends at least 4 cm into the tibial metaphysis. Chest X-Ray 04/29/24 15:00 IMPRESSION: Increased consolidation at the RIGHT apex consistent with the known neoplasm. No interval imaging since 01/31/2023 to evaluate for progression or improvement. Head CT 04/29/24 16:24 IMPRESSION: No acute intracranial pathology. ADDENDUM: 04/29/24 [id number] Please note that the brain findings section should read as follows: Brain: Age related brain involution is present. Diffuse subcortical and periventricular white matter hypodensities are most in favor with chronic small vessel disease. No extra-axial fluid collections, midline shift, brain herniation, intracranial hemorrhage, or mass effect. Tibia/Fibula X-Ray 05/01/24 13:09 IMPRESSION: Images obtained for intraoperative purposes. Laboratory Results WBC 16.15 10^3/uL (3.29-11.43) H 05/02/24 04:31 RBC 3.61 10^6/uL (3.85-5.65) L 05/02/24 04:31 Hgb 11.60 g/dL (11.27-16.99) 05/02/24 04:31 Hct 35.1 % (36-47) L 05/02/24 04:31 MCV 97.2 fl (85-98) 05/02/24 04:31 MCH 32.1 pg (27-33) 05/02/24 04:31 MCHC 33.0 g/dL (30-55) 05/02/24 04:31 RDW 15.3 % (12.1-15.1) H 05/02/24 04:31 Plt Count 179 10^3/cmm (157-399) 05/02/24 04:31 MPV 10.0 fL (7.4-10.4) 05/02/24 04:31 Neut % (Auto) 75.7 % 05/02/24 04:31 Lymph % (Auto) 15.2 % 05/02/24 04:31 [place] % (Auto) 8.4 % 05/02/24 04:31 Eos % (Auto) 0.1 % 05/02/24 04:31 Baso % (Auto) 0.2 % 05/02/24 04:31 Neut # (Auto) 12.22 10^3/uL (1.8-7.7) H 05/02/24 04:31 Lymph # (Auto) 2.5 10^3/uL (0.8-4.8) 05/02/24 04:31 Emmons # (Auto) 1.4 10^3/uL (0.2-0.9) H 05/02/24 04:31 Eos # (Auto) 0.0 10^3/uL (0.0-0.8) 05/02/24 04:31 Baso # (Auto) 0.0 10^3/uL (0.0-0.1) 05/02/24 04:31 Nucleated RBC % (auto) 0 % 05/02/24 04:31 Nucleated RBCs # 0.0 /100WBC 05/02/24 04:31 PT 13.10 SECONDS (12.1-14.9) 04/29/24 16:31 INR 0.96 (0.8-1.2) 04/29/24 16:31 Sodium 137 mmol/L (136-145) 05/02/24 04:31 Potassium 3.4 mmol/L (3.5-5.1) L 05/02/24 04:31 Chloride 104 mmol/L (98-107) 05/02/24 04:31 Carbon Dioxide 23 mmol/L (22-29) 05/02/24 04:31 Anion Gap 13.4 (5-19) 05/02/24 04:31 BUN 5 mg/dL (8-23) L 05/02/24 04:31 Creatinine 0.5 mg/dL (0.5-0.9) 05/02/24 04:31 GFR Calculation 123.8 mL/min (90-130) 05/02/24 04:31 Glucose 198 mg/dL (65-115) H 05/02/24 04:31 POC Glucose 130 mg/dL (70-110) H 05/02/24 11:22 Estimat Average Glucose 171 04/29/24 12:55 Hemoglobin A1c 7.6 % (4.0-6.0) H 04/29/24 12:55 Calculated Osmolality 287 mOsm/kg (285-295) 05/02/24 04:31 Lactic Acid 0.7 mmol/L (0.5-2.2) 04/29/24 16:31 Calcium 7.7 mg/dL (8.5-10.5) L 05/02/24 04:31 Magnesium 1.6 mg/dL (1.7-2.3) L 05/02/24 04:31 Total Bilirubin 0.2 mg/dL (0.15-1.2) 05/02/24 04:31 AST 13 U/L (0-32) 05/02/24 04:31 ALT 6 U/L (0-33) 05/02/24 04:31 Alkaline Phosphatase 62 U/L (35-105) 05/02/24 04:31 Troponin T Baseline < 6 ng/L (0-10) 04/29/24 16:31 Troponin T Hi Sens 6Hr 6.00 ng/L (0-10) 04/29/24 22:59 Troponin T Hi Sens 6Hr Delta 0.74005 ng/L (0-12) 04/29/24 22:59 C-Reactive Protein 7.3 mg/L (0.0-4.9) H 04/29/24 16:31 NT-Pro-B Natriuret Pep 74 pg/mL (0-125) 04/29/24 16:31 Total Protein 5.6 g/dL (6.6-8.7) L 05/02/24 04:31 Albumin 3.0 g/dL (3.5-5.2) L 05/02/24 04:31 Globulin 2.6 g/dL (1.3-4.6) 05/02/24 04:31 Triglycerides 205 mg/dL (0-150) H 04/29/24 16:31 Cholesterol 157 mg/dL (0-200) 04/29/24 16:31 LDL Cholesterol, Calc 86 mg/dL (50-129) 04/29/24 16:31 HDL Cholesterol 30 mg/dL (60-100) L 04/29/24 16:31 LDL/HDL Ratio 2.87 RATIO (0.00-3.22) 04/29/24 16:31 Cholesterol/HDL Ratio 5.23 mg/dL (0.0-4.40) H 04/29/24 16:31 Procalcitonin 0.03 ng/mL (0-0.5) 04/29/24 16:31 TSH 7.87 uIU/mL (0.27-4.20) H 04/29/24 16:31 Free T4 1.01 ng/dL (0.82-1.77) 04/30/24 05:12 Free T3 2.8 PG/ML (2.0-4.4) 04/30/24 05:12 Urine Color Yellow (Yellow) 04/29/24 15:40 Urine Appearance Clear (CLEAR) 04/29/24 15:40 Urine pH 6 (5-7) 04/29/24 15:40 Ur Specific [place] 1.010 (1.005-1.030) 04/29/24 15:40 Urine Protein Neg (Negative) 04/29/24 15:40 Urine Glucose (UA) 1+ (Normal) H 04/29/24 15:40 Urine Ketones Negative (Negative) 04/29/24 15:40 Urine Blood Neg (Negative) 04/29/24 15:40 Urine Nitrate Negative (Negative) 04/29/24 15:40 Urine Bilirubin Neg (Negative) 04/29/24 15:40 Urine Urobilinogen Norm mg/dL (Negative) 04/29/24 15:40 Ur Leukocyte Esterase Negative (Negative) 04/29/24 15:40 Vitals Last Vital Signs Temp 99.5 F 05/02/24 07:10 Pulse 65 05/02/24 07:10 Resp 16 05/02/24 04:00 BP 143/67 05/02/24 11:28 Pulse Ox 91 05/02/24 07:10 O2 Del Method Room Air 05/02/24 07:10 O2 Flow Rate 3 05/01/24 13:28 Discharge Plan Discharge Patient Disposition: Home Condition: Stable Prescriptions: New hydrocodone-acetaminophen 5-325 mg tablet 1 - 2 tab PO .Q4-6H Qty: 40 0RF Eliquis 2.5 mg tablet 2.5 mg PO BID 42 Days Qty: 84 0RF Continued albuterol sulfate 90 mcg/actuation HFA aerosol inhaler 2 puff inhalation Q6H PRN (Reason: shortness of breath or wheezing) Qty: 8.5 6RF fluticasone propionate [Flonase Allergy Relief] 50 mcg/actuation spray,suspension 2 spray intranasal DAILY Qty: 16 0RF Rx Instructions: administer into each nostril (DME) blood-glucose meter [FreeStyle Pep] Kit See Rx Instructions .ROUTE .MEDSUPPLY Qty: 100 0RF Rx Instructions: strips - test once daily (DME) OneTouch Verio test strips Strip See Rx Instructions .ROUTE .MEDSUPPLY Qty: 100 0RF Rx Instructions: ONCE DAILY (DME) blood-glucose meter [OneTouch Verio Meter] Misc See Rx Instructions .ROUTE .MEDSUPPLY Qty: 1 0RF Rx Instructions: once daily sertraline [Zoloft] 100 mg tablet 100 mg PO DAILY Qty: 30 3RF glipizide 2.5 mg tablet extended release 24hr 2.5 mg PO DAILY Qty: 30 0RF Spiriva with HandiHaler 18 mcg capsule, w/inhalation device 1 cap inhalation DAILY Qty: 60 0RF Rx Instructions: puncture 1 cap using device; one dose = 2 inhalations atorvastatin 20 mg tablet 20 mg PO DAILY Qty: 90 1RF trazodone 100 mg tablet 100 mg PO BEDTIME olanzapine 20 mg tablet 20 mg PO BEDTIME Discontinued tramadol 50 mg tablet 50 mg PO BID PRN (Reason: pain) Qty: 60 2RF gabapentin 300 mg capsule 300 mg PO TID Discharge Orders: Discharge Order (Routine); Ordered 05/02/24 Ordered By: Mitch Amos Referrals: Julien Nam DO [Physician] - 1 week So Copeland DO [Primary Care Provider] - (We have notified your physician's clinic of the need for a follow-up appointment to be scheduled. If you have not heard from them within the next 2 business days, please call them directly. ) Bao Scott MD [Physician] - 7-10 days Discharge Diet: Cardiac Discharge Activity: Resume usual activity Patient Instructions: Acute Wound Care (DC), Opioid Safety, Post Anesthesia Care Activity Restrictions/Additional Instructions: You are being discharged from the hospital today during which time you have been under the care of Dr. Nam. You had a left tibial plateau fracture. You were treated for this injury with open reduction internal fixation of left tibial plateau fracture. You may resume you normal diet (including any special diets as directed by your primary doctor) as well as your home medications. You should follow up with you primary doctor if you have any questions regarding medication you took prior to your stay in the hospital. You may take your pain medication as prescribed. After the first few days, take your pain medication as needed. Do not drive or drink alcohol while taking your pain medication. Your injury may increase your risk of developing a blood clot,or DVT, in your arm or leg. This could potentially dislodge and travel to your lungs and become a life threatening condition called apulmonary embolus,or PE. You have been prescribed Lovenox to be taken to prevent this. Frequent movement of the moving your legs will also help prevent this from occurring. If you develop any new or worsening cough, chestpain, bloody sputum or shortness of breath, call 911 or go to the EmergencyRoom. Always keep your surgical incision/dressing clean and dry. If you experience increasing pain at your incision site, redness, swelling, increasing discharge, foul odors, or fevers (greater than 100.4), night sweats or chills you should call the office at the above number. If you feel this is an emergency you should be evaluated in the Emergency Department of a nearby hospital. Orthopedic Patient Instructions Summary: Weight Bearing: Nonweightbearing left lower extremity Activity: As tolerated. Diet: Regular. Wound Care: Keep dressing clean and dry. Anticoagulation: Lovenox Pain Medication: Take only as needed. Ice, rest and elevation will be of great benefit. Please plan to follow-up gerard Nam in 2 weeks. You will need to call the clinic [phone] to schedule this visit. Thank you far allowing me to participate in your care. Do not hesitate to call the office with any questions or concerns. Discharge Attestations Time Spent in Discharge Care*: greater than 30 min Time Spent in Smoking Cessation: more than 10 minutes Extensive discussion with patient about smoking cessation counseling, her risk of Quality Metrics Clinical Quality Measures [ No reported AMI, CVA or VTE this stay] Coding Level of Care Code 52145 Total time (in minutes) for Discharge: 45 Diagnoses Dyslipidemia E78.5 Type 2 diabetes mellitus without complication, without long-term current use of insulin E11.9 Diabetes mellitus complication status: without complication Primary adenocarcinoma of upper lobe of right lung C34.11 Closed fracture of left tibial plateau, initial encounter S82.142A Encounter type: initial encounter Fracture type: closed
== END 2024-05-02 15:45 | disposition home or self-care (01) | DRG 493 ==
LOC: ER 14:01 → MEDSURG 18:56
PROVIDERS: Orthopaedic Surgery; Admitting Provider Family Medicine; Emergency Provider Physician Assistant; PCP Family Medicine; Visit Provider Family Medicine
PROC: 0QSH04Z Reposition Left Tibia with Internal Fixation Device, Open Approach (ICD-10-PCS; principal; 2024-05-01 10:35)
DX: S82.142A Displaced bicondylar fracture of left tibia, initial encounter for closed fracture (principal); C34.11 Malignant neoplasm of upper lobe, right bronchus or lung; F17.210 Nicotine dependence, cigarettes, uncomplicated; E11.9 Type 2 diabetes mellitus without complications; E78.5 Hyperlipidemia, unspecified; J44.9 Chronic obstructive pulmonary disease, unspecified; F20.9 Schizophrenia, unspecified; F43.10 Post-traumatic stress disorder, unspecified; Z66 Do not resuscitate; W01.0XXA Fall on same level from slipping, tripping and stumbling without subsequent striking against object, initial encounter; Y93.K9 Activity, other involving animal care; Y92.096 Garden or yard of other non-institutional residence as the place of occurrence of the external cause; Z79.84 Long term (current) use of oral hypoglycemic drugs
CPT/HCPCS: 36415; 36416; 70450; 71045; 73562; 73590; 73700; 76000; 80053; 80061; 81003; 82962; 83036; 83605; 83735; 83880; 84145; 84439; 84443; 84481; 84484; 85025; 85610; 86140; 93005; 94664; 96372; 97116; 97161; 97165; 99285; C1713; C9113; J0690; J1100; J1170; J1650; J1815; J1885; J2270; J2371; J2405; J2704; J3010; J7030; J7050

== ENCOUNTER → 2024-05-30 09:33 | Outpatient (BNVA) | payer MEDICAID, SELFPAY | DX: E11.9 Type 2 diabetes mellitus without complications (principal); E78.5 Hyperlipidemia, unspecified | CPT/HCPCS: 80053; 80061; 83036; 85025 ==

== ENCOUNTER → 2024-06-25 08:13 | Outpatient (BNVA) | payer MEDICAID, SELFPAY | PROVIDERS: Visit Provider Orthopaedic Surgery | DX: M79.606 Pain in leg, unspecified (principal) | CPT/HCPCS: 73590; 99024 ==

== ENCOUNTER → 2024-07-11 08:05 | Outpatient (BNVA) | payer MEDICAID, SELFPAY | PROVIDERS: Visit Provider Orthopaedic Surgery | DX: S82.142D Displaced bicondylar fracture of left tibia, subsequent encounter for closed fracture with routine healing (principal); X58.XXXD Exposure to other specified factors, subsequent encounter | CPT/HCPCS: 73590; 73630; 99024 ==